=== PATIENT | male | born 1980 | race Caucasian/White ===

== ENCOUNTER 2016-12-13 19:35 | Emergency (ER) | payer BC ==
[2016-12-13 19:51] VITALS: BP 148/99
[2016-12-13] MEDS ORDERED: Ondansetron 4 MG Tab.DIS PO ONE (20:39)
--- NOTE | 2016-12-13 21:55 | EDM.PDOC ---
ED HPI Allergic Reaction - General Chief Complaint: Allergic Reaction Stated Complaint: POSS ALLERGIC REACTION Time Seen by Provider: 12/13/16 20:16 Source of Information: Reports: Patient - History of Present Illness INITIAL COMMENTS - FREE TEXT/NARRATIVE: Patient is a 36 y/o male who presents to the E.D. complaining of adverse side effects/allergic reaction to two new medications that started last Tuesday. Patient states he was started on nexium for acid reflux and zoloft for depression/anxiety. States since starting these two medications depression and acid reflux have decreased but has been nauseated with two episodes of emesis, heart palpitations, and decrease in appetite noted. States he is able to eat with no vomiting. Has intermittent thoughts of current symptoms he is having and becomes mildly anxious. States this has never happened before and relates it to the zoloft. Denies CP, SOB, Abdominal pain, fever/chills, blood stools, dysuria, lightheadedness, syncopal episode, or any additional complaints. Past medical history: Depression, esophageal strictures Current medications: Zoloft, Nexium Surgical history: inguinal hernia PCP: Pablo Timing/Duration: Reports: Constant, Waxing/waning Known identified source: possible/maybe Sick Contact: no Similar symptoms previously: no Suspected Etiology: Reports: medication Recent Medical Care: yes Treatments [employer]ER: Reports: Other (see below) (none stated.) - Related Data Allergies/ADRs: Allergies Allergy/AdvReac Type Severity Reaction Status Date / Time No Known Allergies Allergy Verified 12/13/16 19:46 Home Meds: Home Meds Esomeprazole Magnesium [Nexium] 20 mg PO DAILY 12/13/16 [History] Sertraline HCl [Zoloft] 50 mg PO DAILY 12/13/16 [History] Past Medical History - Past Health History Medical/Surgical History: Denies Medical/Surgical History Gastrointestinal History: Reports: Other (see below) Other Gastrointestinal History: ring in his esophagus for difficulty swallowing Psychiatric History: Reports: Depression Social & Family History - Tobacco Use Smoking Status *Q: Never Smoker - Recreational Drug Use Recreational Drug Use: No ED ROS ALLERGIC REACTION - Review of Systems Review Of Systems: See Below Constitutional: Reports: malaise, decreased appetite. Denies: fever, chills HEENT: Reports: No symptoms Respiratory: Reports: No Symptoms Cardiovascular: Reports: No symptoms GI/Abdominal: Reports: Nausea, Vomiting. Denies: Abdominal pain : Reports: no symptoms Musculoskeletal: Reports: no symptoms Neurological: Reports: No Symptoms Psychiatric: Reports: Anxiety, Depression. Denies: Agitation, Confusion ED EXAM GENERAL NO PERIP PULSE - Physical Exam Exam: See Below Exam Limited By: No limitations General Appearance: alert, WD/WN, no apparent distress Eye Exam: bilateral eye: EOMI, PERRL Ears: hearing grossly normal Nose: normal inspection Throat/Mouth: Normal inspection, Normal oropharynx, Normal voice, No airway compromise Neck: normal inspection, supple Respiratory/Chest: no respiratory distress, lungs clear, normal breath sounds, no accessory muscle use, chest non-tender Cardiovascular: normal peripheral pulses, regular rate, rhythm, no murmur GI/Abdominal: normal bowel sounds, soft, non tender, no organomegaly, no distention Back Exam: normal inspection Neurological: alert, oriented, CN II-XII intact, normal cognition, normal gait, no motor/sensory deficits Psychiatric: normal affect, normal mood Skin Exam: Warm, Dry, Intact, Normal color, No rash Course - Vital Signs Last Recorded V/S: Last Vital Signs Temp 97.2 F 12/13/16 19:47 Pulse 84 12/13/16 19:47 Resp 18 12/13/16 19:47 BP 148/99 H 12/13/16 19:47 Pulse Ox 100 12/13/16 19:47 - Orders/Labs/Meds Meds: Medications Discontinued Medications Generic Name Dose Route Start Last Admin Trade Name José Luis PRN Reason Stop Dose Admin Ondansetron HCl 4 mg 12/13/16 20:39 12/13/16 20:45 Zofran Odt PO 12/13/16 20:40 4 mg ONETIME ONE Administration - Re-Assessments/Exams Free Text/Narrative Re-Assessment/Exam: Zofran ODT 4mg ordered. Suspect the cause of the patient's current symptoms are adverse side effects associated to these medications. Examination did not elicit any findings that would require further testing. Patient concurs. Reassessment, nausea has improved. He is ready to be discharged home. States he feels more anxious while taking these medication. As discussed earlier believe majority of his symptoms are adverse reactions to the zoloft. Will discharge patient home with instructions as documented. Departure - Departure Time of Disposition: 21:52 Disposition: Home, Self-Care 01 Condition: good Clinical Impression: Adverse effect of selective serotonin reuptake inhibitor (SSRI) Referrals: Gina Decker MD [Primary Care Provider] - Forms: ED Department Discharge, Return to Work/School Form Additional Instructions: Suspect many of your symptoms are related to adverse side effects of zoloft. Will have you call your PCP tomorrow morning to discuss further options in treating depression. Suggest holding off in taking the medication tomorrow until speaking with PCP. Can take benadryl 50mg this evening to help with sleeping. Return to the E.D. as needed for any new or worsening symptoms.
== END 2016-12-13 22:09 | disposition home or self-care (01) ==
LOC: JD.ED 19:35
DX: R00.2 Palpitations (principal); R11.2 Nausea with vomiting, unspecified; R63.0 Anorexia; T43.225A Adverse effect of selective serotonin reuptake inhibitors, initial encounter; F32.9 Major depressive disorder, single episode, unspecified
CPT/HCPCS: 99283; A9270

== ENCOUNTER 2017-02-27 15:34 | Inpatient (IN) | payer BC ==
[2017-02-27] MEDS ORDERED: Sodium Chloride 0.9% 1,000 ML IV SCH (19:00)
[2017-02-27] MEDS ORDERED: Iopamidol 755 MG/ML 50 ML Bottle IVPUSH ONE (19:08)
[2017-02-27] MEDS ORDERED: Iopamidol 755 Mg/ML 100 ML Bottle IVPUSH ONE (19:08)
[2017-02-27] MEDS ORDERED: Sodium Chloride 0.9% 10 ML Syringe FLUSH PRN (19:08)
[2017-02-27] MEDS ORDERED: Sodium Chloride 0.9% 100 ML IV SCH (19:15)
--- NOTE | 2017-02-27 19:20 | EDM.PDOC ---
ED HPI GENERAL MEDICAL PROBLEM - General Chief Complaint: Cardiovascular Problem Stated Complaint: RAPID HEART RATE Time Seen by Provider: 02/27/17 16:23 Source of Information: Reports: Patient, RN Notes Reviewed History Limitations: Reports: No Limitations - History of Present Illness INITIAL COMMENTS - FREE TEXT/NARRATIVE: The patient states that he woke up for unknown reasons at 03:30 this morning, then felt dizzy, hot, and tingly. He denies having dyspnea. He noticed that his apple watch indicated that his heart rate was 138 bpm. His symptoms lasted for about 5 or 6 minutes. He went to work, and while he felt exhausted, he was able to finish his shift. He periodically noticed that his heart rate was around 107 bpm during the day. Afterwards, while standing, around 15:00, he again developed the sensation of feeling dizzy, hot and tingly, the same as he had felt this morning. This episode lasted around 5 minutes. He states that he did not check his heart rate at that time. He states that he has had a similar episode of feeling dizzy, hot, and tingly, when having an IV placed, and he nearly fainted. He denies having recent dyspnea, palpitations, chest pain, nausea, vomiting, constipation, diarrhea, or urinary symptoms. He denies recent lower extremity swelling or injury. No recent long trips. History of hypercoagulable disorder. The patient states that he has been drinking > 44 oz of coffee per day over the past week. This is not a usual practice for him. He denies other sources of caffeine, such as soda or energy drinks. The patient's PCP is Dr. Shah. - Related Data Allergies Allergy/AdvReac Type Severity Reaction Status Date / Time No Known Allergies Allergy Verified 12/13/16 19:46 Home Meds: Home Meds Esomeprazole Magnesium [Nexium] 20 mg PO DAILY 12/13/16 [History] FLUoxetine HCl [Prozac] 40 mg PO DAILY 02/27/17 [History] Past Medical History Gastrointestinal History: Reports: GERD, Other (See Below) (Esophageal stricture ) Genitourinary History: Reports: Renal Calculus Psychiatric History: Reports: Anxiety, Depression - Past Surgical History HEENT Surgical History: Reports: Oral Surgery ([place] teeth extraction) GI Surgical History: Reports: EGD (With esophageal dilatation), Hernia, Inguinal (left) Social & Family History - Family History Family Medical History: Noncontributory - Tobacco Use Smoking Status *Q: Never Smoker - Caffeine Use Caffeine Use: Reports: Coffee. Denies: Energy Drinks, Soda - Alcohol Use Alcohol Use History: Yes Alcohol Use Frequency: Socially - Recreational Drug Use Recreational Drug Use: No - Living Situation & Occupation Living situation: Reports: Single, with Significant Other (Fiance), with Family (3 kids) Occupation: Employed ([employer]) ED ROS GENERAL - Review of Systems Review Of Systems: See Below Constitutional: Reports: No Symptoms HEENT: Reports: No Symptoms Respiratory: Reports: No Symptoms Cardiovascular: Reports: No Symptoms Endocrine: Reports: No Symptoms GI/Abdominal: Reports: Constipation (occasional) : Reports: No Symptoms Musculoskeletal: Reports: No Symptoms Skin: Reports: No Symptoms Neurological: Reports: No Symptoms Psychiatric: Reports: No Symptoms Hematologic/Lymphatic: Reports: No Symptoms Immunologic: Reports: No Symptoms ED EXAM, GENERAL - Physical Exam Exam: See Below Exam Limited By: No Limitations General Appearance: Alert, WD/WN, No Apparent Distress Eye Exam: Bilateral Eye: Normal Inspection Ears: Normal External Exam, Hearing Grossly Normal Nose: Normal Inspection, No Blood Throat/Mouth: Normal Inspection, Normal Lips, Normal Voice, No Airway Compromise Head: Atraumatic, Normocephalic Neck: Normal Inspection, Full Range of Motion Respiratory/Chest: No Respiratory Distress, Lungs Clear, Normal Breath Sounds, No Accessory Muscle Use Cardiovascular: Normal Peripheral Pulses, Regular Rate, Rhythm, No Gallop, No JVD, No Murmur, No Rub, Tachycardia Peripheral Pulses: 4+: Radial (L), Radial (R) GI/Abdominal: Normal Bowel Sounds, Soft, Non-Tender, No Organomegaly, No Distention, No Abnormal Bruit, No Mass (Male) Exam: Deferred Rectal (Males) Exam: Deferred Back Exam: Normal Inspection, Full Range of Motion, NT Extremities: Normal Inspection, Normal Range of Motion, No Pedal Edema, Normal Capillary Refill Neurological: Alert, Oriented, Normal Cognition, No Motor/Sensory Deficits Psychiatric: Normal Affect Skin Exam: Warm, Dry, Intact, Normal Color, No Rash Lymphatic: No Adenopathy EKG INTERPRETATION EKG Date: 02/27/17 Time: 15:58 Rhythm: Other (Sinus tachycardia) Rate (Beats/Min): 113 [place]: Normal P-Wave: Present QRS: Normal ST-T: Normal QT: Normal Comparison: NA - No Prior EKG Course - Vital Signs Last Recorded V/S: Last Vital Signs Temp 35.9 C 02/27/17 15:40 Pulse 110 H 02/27/17 15:40 Resp 12 02/27/17 15:40 BP 159/112 H 02/27/17 15:40 Pulse Ox 98 02/27/17 15:40 - Orders/Labs/Meds Orders: Active Orders 24 hr Category Date Time Status EKG 12 Lead [EKG Documentation Completion] [RC] STAT Care 02/27/17 15:48 Active Ang Chest [CT] Stat Exams 02/27/17 18:57 Taken Chest 2V [CR] Stat Exams 02/27/17 17:56 Taken Sodium Chloride 0.9% [Normal Saline] 1,000 ml Med 02/27/17 19:00 Active IV ASDIRECTED Sodium Chloride 0.9% [Normal Saline] 100 ml Med 02/27/17 19:15 Active IV ASDIRECTED Sodium Chloride 0.9% [Saline Flush] Med 02/27/17 19:08 Active 10 ml FLUSH ONETIME PRN Medication Orders Sodium Chloride (Normal Saline) 1,000 mls @ 150 mls/hr IV ASDIRECTED MATA Last Admin: 02/27/17 20:37 Dose: 150 mls/hr Sodium Chloride (Normal Saline) 100 mls @ 65 mls/hr IV ASDIRECTED MATA Last Admin: 02/27/17 19:30 Dose: 65 mls/hr Sodium Chloride (Saline Flush) 10 ml FLUSH ONETIME PRN PRN Reason: IV FLUSH Last Admin: 02/27/17 19:30 Dose: 10 ml Labs: Laboratory Tests 02/27/17 02/27/17 02/27/17 Range/Units 18:13 18:15 18:15 WBC 11.65 H (4.23-9.07) K/mm3 RBC 4.86 (4.63-6.08) M/mm3 Hgb 15.3 (13.7-17.5) gm/L Hct 42.5 (40.1-51.0) % MCV 87.4 (79.0-92.2) fl MCH 31.5 (25.7-32.2) pg MCHC 36.0 H (32.2-35.5) g/dl RDW Std Deviation 38.5 (35.1-43.9) fL Plt Count 326 (163-337) K/mm3 MPV 8.9 L (9.4-12.3) fl Neutrophils % (Manual) 84 H (40-60) % Band Neutrophils % 0 (0-10) % Lymphocytes % (Manual) 13 L (20-40) % Atypical Lymphs % 0 % Monocytes % (Manual) 3 (2-10) % Eosinophils % (Manual) 0 L (0.8-7.0) % Basophils % (Manual) 0 L (0.2-1.2) Platelet Estimate Adequate RBC Morph Comment Normal PT 10.8 (8.0-13.0) SECONDS INR 0.99 APTT 28 (22-36) SECONDS D-Dimer, Quantitative 1.16 H (0.19-0.59) mg/L Puncture Site Rt radial ABG pH 7.48 H (7.35-7.45) ABG pCO2 29.2 L (35.0-45.0) mmHg ABG pO2 82.0 (80.0-100.0) mmHg ABG HCO3 21.3 L (22.0-26.0) meq/L Darryl Test Positive A-a Gradient 16 mmHg O2 Delivery Device Room air FiO2 21.00 (21.00-100.00) % Sodium (136-145) mEq/L Potassium (3.5-5.1) mEq/L Chloride (98-107) mEq/L Carbon Dioxide (21-32) mEq/L Anion Gap (5-15) BUN (7-18) mg/dL Creatinine (0.7-1.3) mg/dL Est Cr Clr Drug Dosing mL/min Estimated GFR (MDRD) (>60) mL/min BUN/Creatinine Ratio (14-18) Glucose (74-106) mg/dL Lactic Acid (0.4-2.0) mmol/L Calcium (8.5-10.1) mg/dL Total Bilirubin (0.2-1.0) mg/dL AST (15-37) U/L ALT (16-63) U/L Alkaline Phosphatase (46-116) U/L Troponin I (0.00-0.056) ng/mL B-Natriuretic Peptide (0-100) pg/mL Total Protein (6.4-8.2) g/dl Albumin (3.4-5.0) g/dl Globulin gm/dL Albumin/Globulin Ratio (1-2) 02/27/17 02/27/17 02/27/17 Range/Units 18:15 18:15 18:15 WBC (4.23-9.07) K/mm3 RBC (4.63-6.08) M/mm3 Hgb (13.7-17.5) gm/L Hct (40.1-51.0) % MCV (79.0-92.2) fl MCH (25.7-32.2) pg MCHC (32.2-35.5) g/dl RDW Std Deviation (35.1-43.9) fL Plt Count (163-337) K/mm3 MPV (9.4-12.3) fl Neutrophils % (Manual) (40-60) % Band Neutrophils % (0-10) % Lymphocytes % (Manual) (20-40) % Atypical Lymphs % % Monocytes % (Manual) (2-10) % Eosinophils % (Manual) (0.8-7.0) % Basophils % (Manual) (0.2-1.2) Platelet Estimate RBC Morph Comment PT (8.0-13.0) SECONDS INR APTT (22-36) SECONDS D-Dimer, Quantitative (0.19-0.59) mg/L Puncture Site ABG pH (7.35-7.45) ABG pCO2 (35.0-45.0) mmHg ABG pO2 (80.0-100.0) mmHg ABG HCO3 (22.0-26.0) meq/L Darryl Test A-a Gradient mmHg O2 Delivery Device FiO2 (21.00-100.00) % Sodium 137 (136-145) mEq/L Potassium 3.4 L (3.5-5.1) mEq/L Chloride 101 (98-107) mEq/L Carbon Dioxide 26 (21-32) mEq/L Anion Gap 13.4 (5-15) BUN 9 (7-18) mg/dL Creatinine 1.0 (0.7-1.3) mg/dL Est Cr Clr Drug Dosing 107.72 mL/min Estimated GFR (MDRD) > 60 (>60) mL/min BUN/Creatinine Ratio 9.0 L (14-18) Glucose 118 H (74-106) mg/dL Lactic Acid 1.0 (0.4-2.0) mmol/L Calcium 9.6 (8.5-10.1) mg/dL Total Bilirubin 0.5 (0.2-1.0) mg/dL AST 20 (15-37) U/L ALT 46 (16-63) U/L Alkaline Phosphatase 84 (46-116) U/L Troponin I < 0.017 (0.00-0.056) ng/mL B-Natriuretic Peptide < 15 (0-100) pg/mL Total Protein 8.4 H (6.4-8.2) g/dl Albumin 4.4 (3.4-5.0) g/dl Globulin 4.0 gm/dL Albumin/Globulin Ratio 1.1 (1-2) Meds: Medications Generic Name Dose Route Start Last Admin Trade Name Freq PRN Reason Stop Dose Admin Sodium Chloride 1,000 mls @ 150 mls/hr 02/27/17 19:00 02/27/17 20:37 Normal Saline IV 150 mls/hr ASDIRECTED MATA Administration Sodium Chloride 100 mls @ 65 mls/hr 02/27/17 19:15 02/27/17 19:30 Normal Saline IV 65 mls/hr ASDIRECTED MATA Administration Sodium Chloride 10 ml 02/27/17 19:08 02/27/17 19:30 Saline Flush FLUSH 10 ml ONETIME PRN Administration IV FLUSH Discontinued Medications Generic Name Dose Route Start Last Admin Trade Name Freq PRN Reason Stop Dose Admin Enoxaparin Sodium 85 mg 02/27/17 20:26 02/27/17 20:38 Lovenox SUBCUT 02/27/17 20:27 85 mg ONETIME STA Administration Iopamidol 100 ml 02/27/17 19:08 02/27/17 19:30 Isovue-370 (76%) IVPUSH 02/27/17 19:09 100 ml ONETIME ONE Administration Iopamidol 50 ml 02/27/17 19:08 02/27/17 19:30 Isovue-370 (76%) IVPUSH 02/27/17 19:09 50 ml ONETIME ONE Administration - Re-Assessments/Exams Free Text/Narrative Re-Assessment/Exam: 02/27/17 18:58 The patient's D-dimer has returned elevated at 1.16. I have ordered a CT angiogram of the chest to evaluate for PE, along with IV fluid. The patient's WBC count is modestly elevated at 11.65, but with 0% bandemia. His CMP is unremarkable. His ABG reflects an [id number] respiratory alkalosis. 02/27/17 19:18 Two-view chest radiograph appears to be grossly normal. Cardiac silhouette is within normal limits. No pulmonary vascular congestion. No pleural effusions. No focal infiltrate. No pneumothorax. Formal read per the Radiologist pending. 02/27/17 20:[address] Arrington, [facility] Radiologist at 20:[address] angiogram is positive for PE in the right lower lobe. I have ordered Lovenox 85 mg SQ. 02/27/17 20:35 Test results discussed with the patient. He is agreeable to being admitted to the hospital. 02/27/17 20:[address] Ellison at 20:35. He accepts the patient for admission to telemetry. Departure - Departure Time of Disposition: 20:40 Disposition: Admitted As Inpatient 65 Condition: Fair Clinical Impression: Pulmonary embolus - My Orders Last 24 Hours: My Active Orders 02/27/17 15:48 EKG 12 Lead [EKG Documentation Completion] [RC] STAT 02/27/17 17:56 Chest 2V [CR] Stat 02/27/17 18:57 Ang Chest [CT] Stat 02/27/17 19:00 Sodium Chloride 0.9% [Normal Saline] 1,000 ml IV ASDIRECTED 02/27/17 19:08 Sodium Chloride 0.9% [Saline Flush] 10 ml FLUSH ONETIME PRN 02/27/17 19:15 Sodium Chloride 0.9% [Normal Saline] 100 ml IV ASDIRECTED - Assessment/Plan Last 24 Hours: My Active Orders 02/27/17 15:48 EKG 12 Lead [EKG Documentation Completion] [RC] STAT 02/27/17 17:56 Chest 2V [CR] Stat 02/27/17 18:57 Ang Chest [CT] Stat 02/27/17 19:00 Sodium Chloride 0.9% [Normal Saline] 1,000 ml IV ASDIRECTED 02/27/17 19:08 Sodium Chloride 0.9% [Saline Flush] 10 ml FLUSH ONETIME PRN 02/27/17 19:15 Sodium Chloride 0.9% [Normal Saline] 100 ml IV ASDIRECTED
[2017-02-27] MEDS ORDERED: Enoxaparin 100 MG/1 ML Syringe SUBCUT STA (20:26)
--- NOTE | 2017-02-27 21:29 | PCM.HP ---
H&P History of Present Illness - General Date of Service: 02/27/17 Admit Problem/Dx: Admission Diagnosis/Problem Admission Diagnosis/Problem Pulmonary embolism Source of Information: Patient, Provider, RN Notes Reviewed, Significant Other History Limitations: Reports: No Limitations - History of Present Illness Initial Comments - Free Text/Narative: This is a 36-year-old white male with past medical history of GERD, history of renal stone, anxiety, depression, history of esophageal stricture status post dilation who presented to the emergency department bleed symptoms of dizziness and feeling hot and tingly. This constellation of symptoms woke him up at about 3:00 this morning. He denies any heart palpitations however he noticed that his heart rate was in the 130s noted on his apple watch. His symptoms lasted about 5-6 minutes. Patient carries no history of abnormal or malignant heart rate in the past. He denies any thyroid problems. Patient had a recurrent episode in the emergency department when having an IV placed in his hand. At that time, it was noted he almost fainted. Patient denies any shortness of breath but has some pain with taking deep breaths. He denies any recent lower extremity edema or injury. Additionally patient admits to drinking coffee daily. He denies any stimulants or any other sources of caffeine or caffeinated products. His initial workup in the emergency department shows a CBC remarkable for WBC of 11.6, and neutrophils of 84%. D-dimer is 1.16. His chemistry is remarkable for potassium of 3.4, glucose of 118 and total protein of 8.4. His EKG shows sinus tachycardia with a heart rate of 113. His Chest CTA [facility] report reads pulmonary emboli involving a small branches of the right lower lobe pulmonary artery. Patient is being admitted for medical management of PE, Sinus Tachycardia and Accelerated HTN. - Related Data Allergies/Adverse Reactions: Allergies Allergy/AdvReac Type Severity Reaction Status Date / Time No Known Allergies Allergy Verified 02/27/17 21:26 Home Medications: Home Meds Esomeprazole Magnesium [Nexium] 20 mg PO DAILY 12/13/16 [History] Albuterol Sulfate [Proair Hfa] 2 puff IH TID PRN 02/27/17 [History] Ciprofloxacin [IJD: Ciloxan 0.3% Ophth Soln] 1 drop OP TID PRN 02/27/17 [History ] FLUoxetine HCl [Prozac] 40 mg PO DAILY 02/27/17 [History] Soft Lens Adjunctive Solutions [Opti-Free] 10 ml MC DAILY PRN 02/27/17 [History] Past Medical History - Past Health History Medical/Surgical History: Denies Medical/Surgical History Gastrointestinal History: Reports: GERD, Other (See Below) (Esophageal stricture ) Other Gastrointestinal History: esophageal stricture. Genitourinary History: Reports: Renal Calculus Psychiatric History: Reports: Anxiety, Depression - Past Surgical History HEENT Surgical History: Reports: Oral Surgery ([place] teeth extraction) GI Surgical History: Reports: EGD (With esophageal dilatation), Hernia, Inguinal (left) Social & Family History - Family History Family Medical History: Noncontributory - Tobacco Use Smoking Status *Q: Never Smoker - Caffeine Use Caffeine Use: Reports: Coffee. 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 Denies: Fever, Chills, Malaise, Weakness, Fatigue HEENT: Reports: No Symptoms Pulmonary: Reports: Pleuritic Chest Pain. Denies: Shortness of Breath Cardiovascular: Reports: Lightheadedness, Blood Pressure Problem, Other (Near Syncope). Denies: Chest Pain, Palpitations, Dyspnea on Exertion, Claudication Gastrointestinal: Reports: Constipation. Denies: Abdominal Pain, Decreased Appetite, Difficulty Swallowing, Nausea, Vomiting Genitourinary: Reports: No Symptoms Musculoskeletal: Reports: No Symptoms Skin: Denies: Jaundice, Rash, Erythema Psychiatric: Denies: Confusion, Depression, Anxiety, Hallucinations, Suicidal Ideation Neurological: Reports: Dizziness, Numbness, Tingling Hematologic/Lymphatic: Reports: No Symptoms Immunologic: Reports: No Symptoms Exam - Exam Exam: See Below - Vital Signs Vital Signs: Last Vital Signs Temp 35.9 C 02/27/17 15:40 Pulse 110 H 02/27/17 15:40 Resp 12 02/27/17 15:40 BP 159/112 H 02/27/17 15:40 Pulse Ox 98 02/27/17 15:40 Weight: 83.007 kg - Exam Quality Assessment: No: Supplemental Oxygen General: Alert, Oriented, Cooperative. No: Mild Distress HEENT: Conjunctiva Clear, EACs Clear, EOMI, Hearing Intact, Mucosa Moist & [place] , Nares Patent, Normal Nasal Septum, Posterior Pharynx Clear, Pupils Equal, Pupils Reactive Neck: Supple, Trachea Midline, Full Range of Motion. No: +2 Carotid Pulse wo Bruit Lungs: Clear to Auscultation, Normal Respiratory Effort Cardiovascular: Regular Rate, Tachycardia Abdomen: Normal Bowel Sounds, Soft. No: Organomegaly, Tenderness (Male) Exam: Deferred, Other (No inguinal tenderness) Rectal (Males) Exam: Deferred Back Exam: Normal Inspection, Full Range of Motion Extremities: Normal Inspection, Normal Pulses, Other (Negative Eden's sign). No: Clubbing, Cyanosis, Calf Tenderness, Edema, Increased Warmth Peripheral Pulses: 3+: Posterior Tibial (L), Posterior Tibial (R), Dorsalis Pedis (L), Dorsalis Pedis (R) Skin: Warm, Dry, Intact Neuro Extensive - Mental Status: Oriented x3, Normal Cognition, Memory Intact Neuro Extensive - Motor, Sensory, Reflexes: CN II-XII Intact, Normal Gait Psychiatric: Alert, Normal Affect, Normal Mood - Patient Data Result Diagrams: 02/27/17 18:15 02/27/17 18:15 EKG INTERPRETATION EKG Date: 02/27/17 Time: 15:58 Rhythm: Other (Sinus Tachycardia) Rate (Beats/Min): 113 [place]: Normal P-Wave: Present QRS: Normal ST-T: Normal QT: Normal Comparison: NA - No Prior EKG *Q Meaningful Use (ADM) - VTE *Q VTE Criteria *Q: - Stroke *Q Stroke Criteria *Q: - AMI *Q AMI Criteria *Q: Problem List Initiated/Reviewed/Updated: Yes Orders Last 24hrs: Medication Orders Sodium Chloride (Normal Saline) 1,000 mls @ 150 mls/hr IV ASDIRECTED [facility]ATA Last Admin: 02/27/17 20:37 Dose: 150 mls/hr Sodium Chloride (Normal Saline) 100 mls @ 65 mls/hr IV ASDIRECTED [facility] Last Admin: 02/27/17 19:30 Dose: 65 mls/hr Sodium Chloride (Saline Flush) 10 ml FLUSH ONETIME PRN PRN Reason: IV FLUSH Last Admin: 02/27/17 19:30 Dose: 10 ml Assessment/Plan Comment:: Assessment/Plan: Pulmonary Embolism - Unprovoked - Risk factor: Couch Potato Lifestyle, Family Hx: Mom had a DVT at the age of 67 (She is now ) and Dad also had a blood clot, he was Morbidly Obese - No recent surgery, prolonged travel, no active malignancy - He is a non smoker, no previous hx/o blood clot, no family hx/o abnormal clotting, no clotting disorder - He is not overweight - CTA shows Pulmonary emboli involving small (subsegmental) branches of the right lower lobe pulmonary artery - Received lovenox SubQ DVT/PE dose in ED - Defer hypercoagulable work up after completion of treatment - Offered warfarin vs NOACs: after discussing risks and benefits- she elected NOACs - Will start xarelto PE treatment protocol to complete for 6 months Pleuritic Pain - 2/2 PE - He is moderately unstable: Hypertensive and Sinus Tachycardia - Pain management - IS Q2 as directed Sinus Tachycardia - HR as high at 113 - 2/2 PE - Thyroid Panel in am - PRN rate control med Accelerated HTN - Presenting BP 159/112 mmHg - Has mild hypokalemia - He carries a hx/o HTN but stop taking his medications - Follow up BPs: 146/107 and 137/111 mmHg - DDx: Conn Syndrome or Primary Hyperaldosteronism - If K remains low, will do work for for above - Clonidine 0.1 mg po and Lasix 10 mg IVP x1 now - PRN Hydralazine Mild Hypokalemia - K 3.4 - Pharmacy to replete and monitor Plan: Admit to Med-Surg Floor w/ Tele Routine AM Labs UDS Resume Home Meds Bilateral LE U/S r/o DVT RT consult SW/CM for d/c planning
[2017-02-27] MEDS ORDERED: Acetaminophen 325 MG Tab PO PRN (22:06)
[2017-02-27] MEDS ORDERED: Metoprolol Tartrate 5 MG/5 ML SDV IVPUSH PRN (22:06)
[2017-02-27] MEDS ORDERED: Morphine 2 MG/ML Syringe IVPUSH PRN (22:06)
[2017-02-27] MEDS ORDERED: hydrALAZINE 20 MG/ML SDV IVPUSH PRN (22:06)
[2017-02-27] MEDS ORDERED: Acetaminophen/HYDROcodone 325-5 MG Tab PO PRN (22:06)
[2017-02-27] MEDS ORDERED: Polyethylene Glycol 3350 Powder 17 GM Packet PO PRN (22:07)
[2017-02-27] MEDS ORDERED: Albuterol/Ipratropium 3.0-0.5 MG/3 ML Neb Soln NEB PRN (22:07)
[2017-02-27] MEDS ORDERED: Promethazine 12.5 MG in Sodium Chloride 0.9% 50 ML IV PRN (22:07)
[2017-02-27] MEDS ORDERED: Bisacodyl 5 MG Tab PO PRN (22:07)
[2017-02-27] MEDS ORDERED: LORazepam 2 MG/ML MDV IV PRN (22:07)
[2017-02-27] MEDS ORDERED: Temazepam 15 MG Cap PO PRN (22:07)
[2017-02-27] MEDS ORDERED: Ondansetron 4 MG/2 ML SDV IV PRN (22:07)
[2017-02-27] MEDS ORDERED: Albuterol 6.7 GM Inhaler INH PRN (22:12)
[2017-02-27] MEDS ORDERED: CIPROFLOXACIN OP PRN (22:12)
[2017-02-27] MEDS ORDERED: [UNRECOGNIZED DRUG - REMARK] MC PRN (22:12)
[2017-02-27] MEDS ORDERED: cloNIDine 0.1 MG Tab PO ONE (22:17)
[2017-02-27] MEDS ORDERED: Furosemide 20 MG/2 ML VIAL IVPUSH ONE (22:17)
[2017-02-27] MEDS ORDERED: Potassium Chloride 20 MEQ Tab.ER PO SCH (23:00)
[2017-02-28] MEDS ORDERED: Potassium Chloride 10 MEQ in Premix Bag 1 BAG IV SCH (00:30)
[2017-02-28] MEDS: Potassium Chloride 20 MEQ Tab.ER PO SCH ×2 (06:19→06:20)
[2017-02-28] MEDS ORDERED: Pantoprazole 40 MG Tab.CR PO SCH (07:00)
[2017-02-28] MEDS ORDERED: oxyCODONE ER 10 MG TAB.ER PO SCH (09:00)
[2017-02-28] MEDS ORDERED: Rivaroxaban 10 MG Tab PO SCH (09:00)
[2017-02-28] MEDS ORDERED: Non-Formulary Medication 1 Each (Esomeprazole Magnesium [Nexium] 20 MG) PO SCH (09:00)
[2017-02-28] MEDS ORDERED: FLUoxetine 20 MG Cap PO SCH (09:00)
--- NOTE | 2017-02-28 09:51 | CR ---
Chest: Two views of the chest were obtained. Comparison: Previous chest x-ray of 09/17/16. Heart size and mediastinum are within normal limits. Lungs are clear. Bony structures appear within normal limits for the patient's age. Impression: 1. Nothing acute is identified on two view chest x-ray. Diagnostic code #1
--- NOTE | 2017-02-28 09:51 | CT ---
CT chest Technique: Multiple axial sections were obtained from above the lung apices inferiorly through the lung bases. Intravenous contrast was utilized. Study has been performed as a pulmonary angiogram protocol. Comparison: Recent chest x-ray performed on the same day (6:19 PM). Findings: Several small subsegmental pulmonary emboli seen within the right lower pulmonary artery. No other pulmonary emboli are seen. Mediastinum and hilar regions show no adenopathy or mass. No pericardial thickening is seen. Small portion of the visualized upper abdominal structures are within normal limits. No pleural effusions are seen. Minimal dependent atelectasis is incidentally noted within the left lung base. Nodular type density seen within the lingula most likely due to nodular atelectasis. Impression: 1. Several small subsegmental pulmonary emboli within the right lower pulmonary artery. 2. Nodular density within the lingula most likely representing nodular area of atelectasis. Diagnostic code #5 I agree with preliminary report issued by [facility] ([facility] report finalized on 02/27/17, 9:23 PM Central Time)
--- NOTE | 2017-02-28 10:53 | US ---
Bilateral lower extremity deep venous ultrasound: Duplex and color flow imaging was obtained of the right and left common femoral, proximal greater saphenous, superficial femoral, popliteal, posterior tibial and peroneal veins. Findings: Augmentation and phasic flow not well seen within both posterior tibial and peroneal veins. Normal compression is seen of both these veins. Other veins show normal phasic flow, augmentation and compression. Impression: 1. No findings of deep venous thrombosis seen within either the right or left lower extremity. I agree with preliminary report issued by [facility] ([facility] report finalized on 02/28/17, 1:49 AM Central Time)
--- NOTE | 2017-02-28 11:31 | PCM.DCSUM1 ---
Discharge Summary - Hospital Course Brief History: This is a 36-year-old white male with past medical history of GERD, history of renal stone, anxiety, depression, history of esophageal stricture status post dilation who presented to the emergency department with symptoms of dizziness and feeling hot and tingly; was found to have pulmonary emboli. - Discharge Data Discharge Date: 02/28/17 Discharge Disposition: Home, Self-Care 01 Condition: Good - Discharge Diagnosis/Problem(s) (1) Pulmonary embolus SNOMED Code(s): 32929554, 98849866 ICD Code: I26.99 - OTHER PULMONARY EMBOLISM WITHOUT ACUTE COR PULMONALE Status: Acute Qualifiers: Pulmonary embolism type: other Chronicity: chronic Acute cor pulmonale presence: without acute cor pulmonale Qualified Code(s): I27.82 - Chronic pulmonary embolism (2) Accelerated hypertension SNOMED Code(s): 85514662 ICD Code: I10 - ESSENTIAL (PRIMARY) HYPERTENSION Status: Resolved (3) Sinus tachycardia SNOMED Code(s): 62570292 ICD Code: R00.0 - TACHYCARDIA, UNSPECIFIED Status: Resolved (4) Hypokalemia SNOMED Code(s): 22173980 ICD Code: E87.6 - HYPOKALEMIA Status: Resolved - Patient Summary/Data Operative Procedure(s) Performed: None Complications: None Consults: Consultations 02/27/17 22:07 Consult to Case Management [CONS] Routine Consult to Art Installer [CONS] Routine Respiratory Care Assess and Treatment [CONS] Routine Recommended Follow-up Testing/Procedures: None Hospital Course: Patient was primarily admitted for medical management of pulmonary emboli which we felt was unprovoked in nature. No obvious risk factors identified as possible etiology of his blood clot except for being a couch potato. His DVT work up was negative. Patient was provided information regarding traditional treatment for blood clot (warfarin) vs new oral anti-coagulations (NOACs). After we carefully discussed risks and benefits with him, he elected to go with NOACs with preference to xarelto. His hospital course was uncomplicated. The rest of his chronic medical illness remained stable during his admission. Patient will complete a six-month treatment for his pulmonary emboli. Any additional treatment beyond the recommended duration will be based on his hypercoagulable workup. Patient is now ready for discharge. He was advised to call his primary care for any questions or concerns related to his health. He was further advised to follow-up with her in 1-2 weeks. His PCP, Dr. Shah, was called and updated regarding discharge care plans. - Patient Instructions Diet: Usual Diet as Tolerated Activity: As Tolerated Driving: May Drive Today Showering/Bathing: May Shower Notify Provider of: Fever, Nausea and/or Vomiting Other/Special Instructions: - Please take all medications as directed. - Recommened you check your blood pressure at least 3x/day and 3-4x/week. Show log on your follow up appointment with your family doctor. - Call your doctor for any abnormal blood pressure readings. - Call your doctor for any questions or concern right after discharge - Discharge Plan Prescriptions/Med Rec: Rivaroxaban [Xarelto] 15 mg PO Q12H #41 tablet Home Medications: Home Meds Esomeprazole Magnesium [Nexium] 20 mg PO DAILY 12/13/16 [History] Albuterol Sulfate [Proair Hfa] 2 puff IH TID PRN 02/27/17 [History] Ciprofloxacin [IJD: Ciloxan 0.3% Ophth Soln] 1 drop OP TID PRN 02/27/17 [History ] FLUoxetine HCl [Prozac] 40 mg PO DAILY 02/27/17 [History] Soft Lens Adjunctive Solutions [Opti-Free] 10 ml MC DAILY PRN 02/27/17 [History] Rivaroxaban [Xarelto] 15 mg PO Q12H #41 tablet 02/28/17 [Rx] LORazepam [Ativan] 1 mg PO TID PRN #6 tablet 03/01/17 [Rx] Patient Handouts: Rivaroxaban oral tablets, Pulmonary Embolism Referrals: Gina Decker MD [Primary Care Provider] - 03/10/17 1:15 pm ( Discuss options for blood-thinning medications (discuss cost after insurance coverage once free 30-day supply is done)) - Discharge Summary/Plan Comment DC Time >30 min.: Yes (45 mins) Discharge Summary/Plan Comment: Discharge to Home - General Info Date of Service: 02/28/17 Admission Dx/Problem (Free Text: Admission Diagnosis/Problem Admission Diagnosis/Problem Pulmonary embolism Subjective Update: Follow Up Functional Status: Reports: Pain Controlled, Tolerating Diet, Ambulating, Urinating. Denies: New Symptoms - Review of Systems General: Denies: Fever, Weakness, Fatigue, Malaise, Chills HEENT: Reports: No Symptoms Pulmonary: Denies: Shortness of Breath, Pleuritic Chest Pain, Cough Cardiovascular: Denies: Chest Pain, Palpitations, Dyspnea on Exertion, Lightheadedness Gastrointestinal: Denies: Abdominal Pain, Nausea, Vomiting Genitourinary: Reports: No Symptoms Musculoskeletal: Reports: No Symptoms Skin: Denies: Cyanosis Neurological: Denies: Dizziness, Difficulty Walking, Weakness, Gait Disturbance Psychiatric: Denies: Depression, Mood Lability, Anxiety, Agitation, Hallucinations Systems Review Comment: No overnight or acute issues. He is ready for discharge. - Patient Data Vitals - Most Recent: Last Vital Signs Temp 37.1 C 02/28/17 08:01 Pulse 81 02/28/17 08:01 Resp 16 02/28/17 08:01 BP 129/90 02/28/17 08:01 Pulse Ox 97 02/28/17 08:01 Weight - Most Recent: 81.465 kg I&O - Last 24 hours: Intake & Output 02/27/17 02/28/17 02/28/17 22:59 06:59 14:59 Intake Total 851 Output Total 1000 Balance -149 Lab Results - Last 24 hrs: Laboratory Results - last 24 hr 02/28/17 02/28/17 02/28/17 Range/Units 00:00 05:05 05:05 WBC 9.95 H (4.23-9.07) K/mm3 RBC 4.95 (4.63-6.08) M/mm3 Hgb 15.6 (13.7-17.5) gm/L Hct 44.0 (40.1-51.0) % MCV 88.9 (79.0-92.2) fl MCH 31.5 (25.7-32.2) pg MCHC 35.5 (32.2-35.5) g/dl RDW Std Deviation 39.2 (35.1-43.9) fL Plt Count 336 (163-337) K/mm3 MPV 9.2 L (9.4-12.3) fl Neut % (Auto) 67.1 (34.0-67.9) % Lymph % (Auto) 21.4 L (21.8-53.1) % [place] % (Auto) 11.0 (5.3-12.2) % Eos % (Auto) 0.2 L (0.8-7.0) Baso % (Auto) 0.2 (0.1-1.2) % Neut # (Auto) 6.68 H (1.78-5.38) K/mm3 Lymph # (Auto) 2.13 (1.32-3.57) K/mm3 [place] # (Auto) 1.09 H (0.30-0.82) K/mm3 Eos # (Auto) 0.02 L (0.04-0.54) K/mm3 Baso # (Auto) 0.02 (0.01-0.08) K/mm3 Sodium 138 (136-145) mEq/L Potassium 4.0 (3.5-5.1) mEq/L Chloride 101 (98-107) mEq/L Carbon Dioxide 27 (21-32) mEq/L Anion Gap 14.0 (5-15) BUN 8 (7-18) mg/dL Creatinine 0.9 (0.7-1.3) mg/dL Est Cr Clr Drug Dosing 119.69 mL/min Estimated GFR (MDRD) > 60 (>60) mL/min BUN/Creatinine Ratio 8.9 L (14-18) Glucose 94 (74-106) mg/dL Calcium 9.6 (8.5-10.1) mg/dL Magnesium 2.1 (1.8-2.4) mg/dl Free T4 1.14 (0.76-1.46) ng/dL TSH 3rd Generation 1.933 (0.358-3.74) uIU/mL Urine Opiates Screen Negative (NEGATIVE) Ur Buprenorphine Scrn Negative (NEGATIVE) Ur Oxycodone Screen Negative (NEGATIVE) Urine Methadone Screen Negative (NEGATIVE) Ur Propoxyphene Screen Negative (NEGATIVE) Ur Barbiturates Screen Negative (NEGATIVE) Ur Tricyclics Screen Negative (NEGATIVE) Ur Phencyclidine Scrn Negative (NEGATIVE) Ur Amphetamine Screen Negative (NEGATIVE) U Methamphetamines Scrn Negative (NEGATIVE) U Benzodiazepines Scrn Negative (NEGATIVE) U Cocaine Metab Screen Negative (NEGATIVE) U Marijuana (THC) Screen Negative (NEGATIVE) Med Orders - Current: Current Medications Acetaminophen (Tylenol) 650 mg PO Q4H PRN PRN Reason: Pain (Mild 1-3)/fever Hydrocodone Bitart/Acetaminophen ([place] 325-5 Mg) 1 tab PO Q4H PRN PRN Reason: Pain (moderate 4-6) Albuterol (Proventil Hfa) 0 gm INH TID PRN PRN Reason: Shortness of Breath Albuterol/Ipratropium (Duoneb 3.0-0.5 Mg/3 Ml) 3 ml NEB Q4H PRN PRN Reason: Shortness Of Breath/wheezing Bisacodyl (Dulcolax) 5 mg PO DAILY PRN PRN Reason: Constipation Fluoxetine HCl (Prozac) 40 mg PO DAILY [facility] Last Admin: 02/28/17 09:22 Dose: 40 mg Hydralazine HCl (Apresoline) 20 mg IVPUSH Q4H PRN PRN Reason: Hypertension Promethazine HCl 12.5 mg/ (Sodium Chloride) 50.5 mls @ 100 mls/hr IV Q6H PRN PRN Reason: Nausea/Vomiting Lorazepam (Ativan) 1 mg IV Q6H PRN PRN Reason: Anxiety Magnesium Sulfate (Pharmacy To Dose - Magnesium Replacement) 1 dose .XX ASDIRECTED [facility] Metoprolol Tartrate (Lopressor) 5 mg IVPUSH Q4H PRN PRN Reason: Tachycardia Morphine Sulfate (Morphine) 1 mg IVPUSH Q4H PRN PRN Reason: Pain (severe 7-10) Stop: 03/01/17 22:07 Ondansetron HCl (Zofran) 4 mg IV Q6H PRN PRN Reason: Nausea/Vomiting Last Admin: 02/28/17 00:05 Dose: 4 mg Oxycodone HCl (Oxycontin) 10 mg PO Q12HR [facility] Last Admin: 02/28/17 09:21 Dose: Not Given Pantoprazole Sodium (Protonix) 40 mg PO DAILY@0700 [facility] Last Admin: 02/28/17 06:19 Dose: 40 mg Polyethylene Glycol (Miralax) 17 gm PO DAILY PRN PRN Reason: Constipation Potassium Chloride (Pharmacy To Dose - Potassium Replacement) 1 dose .XX ASDIRECTED [facility] Rivaroxaban (Xarelto) 15 mg PO Q12H [facility] Stop: 03/20/17 21:01 Last Admin: 02/28/17 09:23 Dose: 15 mg Rivaroxaban (Xarelto) 20 mg PO WITHBREAKFAST [facility] Stop: 09/21/17 07:01 Senna/Docusate Sodium (Senna Plus) 1 tab PO BID PRN PRN Reason: Constipation Sodium Chloride (Saline Flush) 10 ml FLUSH ONETIME PRN PRN Reason: IV FLUSH Last Admin: 02/27/17 19:30 Dose: 10 ml Temazepam (Restoril) 15 mg PO BEDTIME PRN PRN Reason: Sleep Discontinued Medications Clonidine HCl (Catapres) 0.1 mg PO ONETIME ONE Stop: 02/27/17 22:18 Last Admin: 02/27/17 22:38 Dose: 0.1 mg Enoxaparin Sodium (Lovenox) 85 mg SUBCUT ONETIME STA Stop: 02/27/17 20:27 Last Admin: 02/27/17 20:38 Dose: 85 mg Furosemide (Lasix) 10 mg IVPUSH NOW ONE Stop: 02/27/17 22:18 Last Admin: 02/27/17 22:39 Dose: 10 mg Sodium Chloride (Normal Saline) 1,000 mls @ 150 mls/hr IV ASDIRECTED [facility] Last Admin: 02/27/17 20:37 Dose: 150 mls/hr Sodium Chloride (Normal Saline) 100 mls @ 65 mls/hr IV ASDIRECTED [facility] Last Admin: 02/27/17 19:30 Dose: 65 mls/hr Potassium Chloride 10 meq/ (Premix) 100 mls @ 100 mls/hr IV Q1H [facility] Stop: 02/28/17 04:29 Last Admin: 02/28/17 00:16 Dose: 100 mls/hr Iopamidol (Isovue-370 (76%)) 100 ml IVPUSH ONETIME ONE Stop: 02/27/17 19:09 Last Admin: 02/27/17 19:30 Dose: 100 ml Iopamidol (Isovue-370 (76%)) 50 ml IVPUSH ONETIME ONE Stop: 02/27/17 19:09 Last Admin: 02/27/17 19:30 Dose: 50 ml Non-Formulary Medication (Ciprofloxacin) 1 drop OP TID PRN PRN Reason: eye infection Non-Formulary Medication (Soft Lens Adjunctive Solutions [Opti-Free]) 10 ml MC DAILY PRN PRN Reason: Dry Eyes Potassium Chloride (Klor-Con M20) 20 meq PO Q5H [facility] Stop: 02/28/17 06:01 Last Admin: 02/28/17 06:20 Dose: 20 meq - Exam Quality Assessment: Denies: supplemental oxygen General: Reports: alert, oriented, cooperative, no acute distress HEENT: Reports: Pupils equal, Pupils reactive, EOMI, Mucous membr. moist/pink Neck: Reports: supple, trachea midline, no JVD, no thyromegaly Lungs: Reports: Clear to Auscultation, Normal Respiratory Effort Cardiovascular: Reports: Regular Rate, Regular Rhythm GI/Abdominal Exam: Normal Bowel Sounds, Soft, Non-Tender, No Organomegaly, No Distention, No Abnormal Bruit, No Mass, Pelvis Stable (Male) Exam: Deferred Back Exam: Reports: Normal Inspection, Full Range of Motion Extremities: Normal Inspection, Normal Range of Motion, Non-Tender, No Pedal Edema, Normal Capillary Refill Skin: Reports: warm, dry, intact Neurological: Reports: no new focal deficit Psy/Mental Status: Reports: alert, normal affect, normal mood *Q Meaningful Use (DIS) - VTE *Q VTE Criteria *Q: - Stroke *Q Stroke Criteria *Q: - AMI *Q AMI Criteria *Q:
[2017-02-28 11:49] VITALS: BP 117/93
[2017-03-21] MEDS ORDERED: Rivaroxaban 10 MG Tab PO SCH (07:00)
== END 2017-02-28 13:22 | disposition home or self-care (01) | DRG 134 ==
LOC: JD.ED 15:34 → JD.MS 21:01
PROVIDERS: ADMIT Internal Medicine; ATTEND Internal Medicine
DX: I26.99 Other pulmonary embolism without acute cor pulmonale (principal); R00.0 Tachycardia, unspecified; I10 Essential (primary) hypertension; E87.6 Hypokalemia; K21.9 Gastro-esophageal reflux disease without esophagitis; F32.9 Major depressive disorder, single episode, unspecified; F41.9 Anxiety disorder, unspecified; Z79.899 Other long term (current) drug therapy
CPT/HCPCS: 36415; 36600; 71020; 71020-26; 71275; 71275-26; 80048; 80053; 80306; 82803; 83605; 83735; 83880; 84439; 84443; 84484; 85025; 85379; 85610; 85730; 93005; 93970; 93970-26; 96372; 99285; 99285-25; A9270-GY; J1650; J2405; J3480; J7030; J7040; J7050; Q9967

== ENCOUNTER 2017-03-01 17:05 | Emergency (ER) | payer BC ==
[2017-03-01] MEDS ORDERED: LORazepam 1 MG Tab PO ONE (18:46)
--- NOTE | 2017-03-01 18:46 | EDM.PDOC ---
ED HPI GENERAL MEDICAL PROBLEM - General Chief Complaint: Cardiovascular Problem Stated Complaint: SYMPTOMS FROM EARLIER VISIT OR POSSIBLE PANIC DOM Time Seen by Provider: 03/01/17 18:13 Source of Information: Reports: Patient History Limitations: Reports: No Limitations - History of Present Illness INITIAL COMMENTS - FREE TEXT/NARRATIVE: Patient is a 36-year-old male who presents to the ED complaining of recent history of increased breathing rate, numbness and tingling to his fingers, feeling hot, and mildly dizzy. This started at approx. 1430 today while sitting on the couch. Symptoms lasted approximate 20 minutes after controlling his breathing. He did notice his breathing rate was increased during these times. Symptoms completely resolved prior to arrival. He presents to the ED with concerns this may be related to his PE. Patient was recently diagnosed with small PE to the right lower lobe. He was admitted to the hospital on Tuesday and started on xarelto. He was discharged yesterday. He has been taking all his medications as prescribed. He also has a history of anxiety and depression and is on Prozac. Again he has no symptoms with admission to the ED. Vital signs are stable heart rate is regular, SPO2 status is normal. Denies any chest pain, shortness of breath, nausea/vomiting, abdominal pain, presyncopal episode, lower extremity swelling/pain, or any additional complaints. He questions this maybe related to his anxiety but just wants to make sure. Onset: Today Onset Date: 03/01/17 Onset Time: 14:30 Duration: Resolved Prior to Arrival Severity: Mild Improves with: Reports: Rest - Related Data Allergies Allergy/AdvReac Type Severity Reaction Status Date / Time No Known Allergies Allergy Verified 03/01/17 17:22 Home Meds: Home Meds Esomeprazole Magnesium [Nexium] 20 mg PO DAILY 12/13/16 [History] Albuterol Sulfate [Proair Hfa] 2 puff IH TID PRN 02/27/17 [History] Ciprofloxacin [IJD: Ciloxan 0.3% Ophth Soln] 1 drop OP TID PRN 02/27/17 [History ] FLUoxetine HCl [Prozac] 40 mg PO DAILY 02/27/17 [History] Soft Lens Adjunctive Solutions [Opti-Free] 10 ml MC DAILY PRN 02/27/17 [History] Rivaroxaban [Xarelto] 15 mg PO Q12H #41 tablet 02/28/17 [Rx] LORazepam [Ativan] 1 mg PO TID PRN #6 tablet 03/01/17 [Rx] Past Medical History - Past Health History Medical/Surgical History: Denies Medical/Surgical History Cardiovascular History: Reports: Hypertension Other Cardiovascular History: was on medication but changed diet and hasn't needed medication in a few years. Gastrointestinal History: Reports: GERD, Other (See Below) Other Gastrointestinal History: esophageal stricture. Genitourinary History: Reports: Renal Calculus Psychiatric History: Reports: Anxiety, Depression Other Dermatologic History: Keloids to chest and shoulder - Past Surgical History HEENT Surgical History: Reports: Oral Surgery GI Surgical History: Reports: EGD, Hernia, Inguinal Social & Family History - Family History Family Medical History: Noncontributory - Tobacco Use Smoking Status *Q: Never Smoker Second Hand Smoke Exposure: Yes - Caffeine Use Caffeine Use: Reports: Coffee Other Caffeine Use: daily - Recreational Drug Use Recreational Drug Use: No - Living Situation & Occupation Living situation: Reports: Single, with Significant Other (Fiance), with Family (3 kids) Occupation: Employed ([email or web address]) ED ROS GENERAL - Review of Systems Review Of Systems: ROS reveals no pertinent complaints other than HPI. ED EXAM, GENERAL - Physical Exam Exam: See Below Exam Limited By: No Limitations General Appearance: Alert, WD/WN, No Apparent Distress Ears: Hearing Grossly Normal Nose: Normal Inspection Throat/Mouth: Normal Voice, No Airway Compromise Neck: Normal Inspection, Supple Respiratory/Chest: No Respiratory Distress, Lungs Clear, Normal Breath Sounds, No Accessory Muscle Use Cardiovascular: Normal Peripheral Pulses, Regular Rate, Rhythm, No Murmur Peripheral Pulses: 2+: Radial (L), Radial (R) GI/Abdominal: Normal Bowel Sounds, Soft, Non-Tender, No Organomegaly, No Distention Back Exam: Normal Inspection Extremities: Normal Inspection, Normal Range of Motion, Non-Tender, No Pedal Edema, Normal Capillary Refill Neurological: Alert, Oriented, CN II-XII Intact, Normal Cognition, No Motor/ Sensory Deficits Psychiatric: Normal Affect, Normal Mood Skin Exam: Warm, Dry, Intact, Normal Color Course - Vital Signs Last Recorded V/S: Last Vital Signs Temp 99.3 F 03/01/17 19:22 Pulse 75 03/01/17 19:22 Resp 19 03/01/17 19:22 BP 124/91 H 03/01/17 19:22 Pulse Ox 95 03/01/17 19:22 - Orders/Labs/Meds Meds: Medications Discontinued Medications Generic Name Dose Route Start Last Admin Trade Name José Luis PRN Reason Stop Dose Admin Lorazepam 1 mg 03/01/17 18:46 03/01/17 19:00 Ativan PO 03/01/17 18:47 1 mg ONETIME ONE Administration - Re-Assessments/Exams Free Text/Narrative Re-Assessment/Exam: Symptoms resolved prior to admission to the ED. This was after controlling his breathing for 20 minutes. He does have a history of anxiety and depression and is currently on Prozac. Although he has a history of small PE to the right lower lobe. He is on xarelto. Low probability of propagation of PE contributing to symptoms since resolved quickly. No further testing required at this time. Discussed with Dr. Ruano to which he agrees. Will discharge patient home with a prescription for Ativan, short course. So when or if he has these symptoms again he can take. Will have him follow-up with his PCP for further evaluation and treatment of his anxiety-like symptoms. Patient agrees with this and has not further questions/concerns. Departure - Departure Time of Disposition: 18:52 Disposition: Home, Self-Care 01 Condition: Good Clinical Impression: Anxiety and depression, Right pulmonary embolus Prescriptions: LORazepam [Ativan] 1 mg PO TID PRN #6 tablet PRN Reason: Anxiety Instructions: Panic Attacks, [id number], Pulmonary Embolism Referrals: PCP,None [Primary Care Provider] - Gina Decker MD [Physician] - Forms: ED Department Discharge Additional Instructions: Continue taking all your home medications as prescribed. Follow-up with PCP the end of this week or the first part of next week for reevaluation. I have provided a short course of ativan to be taken as needed if he developed similar symptoms. No driving this evening since receiving this in the ED. No driving while taking the Ativan. This medication will cause some sedation. Long-term use is not recommended. Return to ED for any new or worsening symptoms as discussed.
[2017-03-01 19:27] VITALS: BP 124/91
== END 2017-03-01 19:27 | disposition home or self-care (01) ==
LOC: JD.ED 17:05
DX: F41.9 Anxiety disorder, unspecified (principal); F32.9 Major depressive disorder, single episode, unspecified; I26.99 Other pulmonary embolism without acute cor pulmonale; I10 Essential (primary) hypertension; K21.9 Gastro-esophageal reflux disease without esophagitis; Z79.01 Long term (current) use of anticoagulants; Z79.899 Other long term (current) drug therapy
CPT/HCPCS: 99284; A9270; 99283

== ENCOUNTER 2017-05-07 15:31 | Emergency (ER) | payer BC ==
[2017-05-07 15:39] VITALS: BP 146/106
--- NOTE | 2017-05-07 17:18 | EDM.PDOC ---
ED HPI GENERAL MEDICAL PROBLEM - General Chief Complaint: Chest Pain Stated Complaint: CHEST PRESSURE Time Seen by Provider: 05/07/17 15:37 Source of Information: Reports: Patient History Limitations: Reports: No Limitations - History of Present Illness INITIAL COMMENTS - FREE TEXT/NARRATIVE: The patient is a previously healthy 36-year-old male who comes in with a chief complaint of epigastric pain and chest pain. He states he's had it for about 2 weeks. He didn't recall anything that provoked it. Discomfort is located in the upper abdomen and sometimes radiates up into the chest. It is constant. It waxes and wanes. No clear provoking or relieving factors. Tried taking some Nexium but this didn't really seem to help. Mild nausea, no vomiting. No cough or shortness of breath. No prior history of similar symptoms. Middle Chest Pain Score (Numeric/FACES): 8 - Related Data Allergies Allergy/AdvReac Type Severity Reaction Status Date / Time No Known Allergies Allergy Verified 03/01/17 17:22 Home Meds: Home Meds Esomeprazole Magnesium [Nexium] 20 mg PO DAILY 12/13/16 [History] Rivaroxaban [Xarelto] 20 mg PO DAILY 05/07/17 [History] Past Medical History - Past Health History Medical/Surgical History: Denies Medical/Surgical History Cardiovascular History: Reports: Hypertension Other Cardiovascular History: was on medication but changed diet and hasn't needed medication in a few years. Gastrointestinal History: Reports: GERD, Other (See Below) Other Gastrointestinal History: esophageal stricture. Genitourinary History: Reports: Renal Calculus Psychiatric History: Reports: Anxiety, Depression Hematologic History: Reports: Other (See Below) Other Hematologic History: PE Other Dermatologic History: Keloids to chest and shoulder - Past Surgical History HEENT Surgical History: Reports: Oral Surgery GI Surgical History: Reports: EGD, Hernia, Inguinal Social & Family History - Family History Family Medical History: Noncontributory - Tobacco Use Smoking Status *Q: Never Smoker Second Hand Smoke Exposure: Yes - Caffeine Use Caffeine Use: Reports: Coffee Other Caffeine Use: daily - Recreational Drug Use Recreational Drug Use: No - Living Situation & Occupation Living situation: Reports: Single, with Significant Other (Fiance), with Family (3 kids) Occupation: Employed ([employer]) ED ROS GENERAL - Review of Systems Review Of Systems: See Below Constitutional: Denies: Fever HEENT: Reports: No Symptoms Respiratory: Denies: Shortness of Breath, Cough Cardiovascular: Reports: Chest Pain Endocrine: Reports: No Symptoms GI/Abdominal: Reports: Abdominal Pain : Reports: No Symptoms Musculoskeletal: Reports: No Symptoms Skin: Reports: No Symptoms Neurological: Reports: No Symptoms Psychiatric: Reports: No Symptoms ED EXAM, GENERAL - Physical Exam Exam: See Below Exam Limited By: No Limitations General Appearance: Alert, WD/WN, No Apparent Distress Eye Exam: Bilateral Eye: Normal Inspection Ears: Normal External Exam Nose: Normal Inspection Throat/Mouth: Normal Inspection, Normal Voice, No Airway Compromise Head: Atraumatic, Normocephalic Neck: Normal Inspection, Supple, Non-Tender, Full Range of Motion Respiratory/Chest: No Respiratory Distress, Lungs Clear, Normal Breath Sounds, No Accessory Muscle Use, Chest Non-Tender Cardiovascular: Normal Peripheral Pulses, Regular Rate, Rhythm, No Murmur GI/Abdominal: Normal Bowel Sounds, Soft, No Distention, Other (+epigastric TTP, no regound/guarding). No: Rebound Back Exam: Normal Inspection Extremities: Normal Inspection Neurological: Alert, Oriented, Normal Cognition, No Motor/Sensory Deficits Psychiatric: Normal Affect, Normal Mood Skin Exam: Warm, Dry, Intact, Normal Color, No Rash Course - Vital Signs Last Recorded V/S: Last Vital Signs Temp 36.3 C 05/07/17 15:36 Pulse 73 05/07/17 15:36 Resp 16 05/07/17 15:36 BP 146/106 H 05/07/17 15:36 Pulse Ox 100 05/07/17 15:36 - Orders/Labs/Meds Orders: Active Orders 24 hr Category Date Time Status Chest 1V Frontal [CR] Stat Exams 05/07/17 15:43 Taken Labs: Laboratory Tests 05/07/17 05/07/17 Range/Units 15:53 15:53 WBC 12.35 H (4.23-9.07) K/mm3 RBC 5.27 (4.63-6.08) M/mm3 Hgb 16.8 (13.7-17.5) gm/L Hct 47.3 (40.1-51.0) % MCV 89.8 (79.0-92.2) fl MCH 31.9 (25.7-32.2) pg MCHC 35.5 (32.2-35.5) g/dl RDW Std Deviation 40.6 (35.1-43.9) fL Plt Count 318 (163-337) K/mm3 MPV 9.0 L (9.4-12.3) fl Neut % (Auto) 63.4 (34.0-67.9) % Lymph % (Auto) 23.3 (21.8-53.1) % [place] % (Auto) 12.1 (5.3-12.2) % Eos % (Auto) 0.8 (0.8-7.0) Baso % (Auto) 0.2 (0.1-1.2) % Neut # (Auto) 7.83 H (1.78-5.38) K/mm3 Lymph # (Auto) 2.88 (1.32-3.57) K/mm3 [place] # (Auto) 1.49 H (0.30-0.82) K/mm3 Eos # (Auto) 0.10 (0.04-0.54) K/mm3 Baso # (Auto) 0.03 (0.01-0.08) K/mm3 Sodium 138 (136-145) mEq/L Potassium 3.4 L (3.5-5.1) mEq/L Chloride 100 (98-107) mEq/L Carbon Dioxide 28 (21-32) mEq/L Anion Gap 13.4 (5-15) BUN 18 (7-18) mg/dL Creatinine 0.9 (0.7-1.3) mg/dL Est Cr Clr Drug Dosing 119.69 mL/min Estimated GFR (MDRD) > 60 (>60) mL/min BUN/Creatinine Ratio 20.0 H (14-18) Glucose 103 (74-106) mg/dL Calcium 10.1 (8.5-10.1) mg/dL Total Bilirubin 0.5 (0.2-1.0) mg/dL AST 25 (15-37) U/L ALT 55 (16-63) U/L Alkaline Phosphatase 75 (46-116) U/L Troponin I < 0.017 (0.00-0.056) ng/mL Total Protein 9.1 H (6.4-8.2) g/dl Albumin 4.7 (3.4-5.0) g/dl Globulin 4.4 gm/dL Albumin/Globulin Ratio 1.1 (1-2) Lipase 217 (73-393) U/L - Re-Assessments/Exams Free Text/Narrative Re-Assessment/Exam: 05/07/17 18:41 Labs unremarkable, exam benign, possible gastric ulcer. EKG shows no acute abnormality. Chest x-ray shows no acute abnormality. Pt to f/u with PCP for further workup as needed, discussed return precautions. 05/07/17 19:10 Departure - Departure Time of Disposition: 18:00 Disposition: Home, Self-Care 01 Clinical Impression: Epigastric pain Instructions: Heartburn, [id number] Referrals: Gina Decker MD [Primary Care Provider] - Forms: ED Department Discharge Additional Instructions: 1. Continue to take Nexium to reduce stomach acid 2. Also take Tums or Maalox with meals to further reduce irritation. This may help if your pain is caused by an ulcer. 3. Follow up with your primary care provider this week for further care. 4. Return to the Emergency Department if you have worsening pain, difficulty breathing, or any other concerning symptoms. - My Orders Last 24 Hours: My Active Orders 05/07/17 15:43 Chest 1V Frontal [CR] Stat - Assessment/Plan Last 24 Hours: My Active Orders 05/07/17 15:43 Chest 1V Frontal [CR] Stat
--- NOTE | 2017-05-08 19:58 | CR ---
Chest: Portable view of the chest was obtained. Comparison: Prior chest x-ray of 02/27/[address] of 02/27/17. Heart size and mediastinum are normal. Lungs are clear. Bony structures are grossly intact. Impression: 1. Nothing acute is identified on portable chest x-ray. Diagnostic code #1
== END 2017-05-07 17:45 | disposition home or self-care (01) ==
LOC: JD.ED 15:31
DX: R10.13 Epigastric pain (principal); I10 Essential (primary) hypertension; K21.9 Gastro-esophageal reflux disease without esophagitis; Z79.899 Other long term (current) drug therapy
CPT/HCPCS: 36415; 71010; 71010-26; 80053; 83690; 84484; 85025; 93005; 99284; 99285-25

== ENCOUNTER 2017-05-20 21:21 | Emergency (ER) | payer BC ==
[2017-05-20 21:29] VITALS: BP 146/100
[2017-05-20] MEDS ORDERED: Sodium Chloride 0.9% 10 ML Syringe FLUSH PRN (21:48)
[2017-05-20] MEDS ORDERED: Sodium Chloride 0.9% 1,000 ML IV SCH (22:00)
--- NOTE | 2017-05-20 22:38 | EDM.PDOC ---
ED HPI GENERAL MEDICAL PROBLEM - General Chief Complaint: Flank Pain Stated Complaint: LEFT SIDE FLANK PAIN Time Seen by Provider: 05/20/17 21:49 Source of Information: Reports: Patient History Limitations: Reports: No Limitations - History of Present Illness INITIAL COMMENTS - FREE TEXT/NARRATIVE: Patient is a 36-year-old male who presents to the ED complaining of left-sided flank pain. Patient states it came on abruptly last night. Describes the discomfort as a achy sensation. He was unable to get comfortable last night. Patient did have sexual intercourse with his fiance last night. No pain with ejaculation. Upon awaking this morning states the pain had subsided quite a bit. Throughout the course of the day the pain has grown increasingly worse. Patient states this evening with admission to the ED to 3 out of 10. Just prior to admission it was an 8 out of 10. Has noted some hematuria within his urine prior to admission to the ED. There is no dysuria, increased urgency, decrease amount, or sensation of the pain moving towards his abdomen. Denies any fever/ chills, nausea/vomiting, abdominal pain, or any additional complaints. He does have a history of kidney stones in the past and states symptoms are quite similar to previous episodes. Last episodes approximate 5 years ago. He has not had a CT of his abdomen quite some time. States there is no precipitating factors yesterday or today that may have caused the discomfort. He had no back pain with intercourse. Left Flank Pain Score (Numeric/FACES): 5 - Related Data Allergies Allergy/AdvReac Type Severity Reaction Status Date / Time No Known Allergies Allergy Verified 03/01/17 17:22 Home Meds: Home Meds Esomeprazole Magnesium [Nexium] 20 mg PO DAILY 12/13/16 [History] Rivaroxaban [Xarelto] 20 mg PO DAILY 05/07/17 [History] Past Medical History - Past Health History Medical/Surgical History: Denies Medical/Surgical History Cardiovascular History: Reports: Hypertension Other Cardiovascular History: was on medication but changed diet and hasn't needed medication in a few years. Respiratory History: Reports: PE Gastrointestinal History: Reports: GERD, Other (See Below) Other Gastrointestinal History: esophageal stricture. Genitourinary History: Reports: Renal Calculus Psychiatric History: Reports: Anxiety, Depression Hematologic History: Reports: Anticoagulation Therapy Other Hematologic History: PE Other Dermatologic History: Keloids to chest and shoulder - Past Surgical History HEENT Surgical History: Reports: Oral Surgery GI Surgical History: Reports: EGD, Hernia, Inguinal Social & Family History - Family History Family Medical History: Noncontributory - Tobacco Use Smoking Status *Q: Never Smoker Second Hand Smoke Exposure: No - Caffeine Use Caffeine Use: Reports: None Other Caffeine Use: daily - Recreational Drug Use Recreational Drug Use: No - Living Situation & Occupation Living situation: Reports: Single, with Significant Other (Fiance), with Family (3 kids) Occupation: Employed ([employer]) ED ROS GENERAL - Review of Systems Review Of Systems: ROS reveals no pertinent complaints other than HPI. ED EXAM, RENAL/ - Physical Exam Exam: See Below Exam Limited By: No Limitations General Appearance: Alert, WD/WN, No Apparent Distress Ears: Hearing Grossly Normal Nose: Normal Inspection Throat/Mouth: Normal Voice, No Airway Compromise Neck: Normal Inspection, Supple Respiratory/Chest: No Respiratory Distress, Lungs Clear, Normal Breath Sounds, No Accessory Muscle Use, Chest Non-Tender Cardiovascular: Normal Peripheral Pulses, Regular Rate, Rhythm, No Murmur GI/Abdominal: Normal Bowel Sounds, Soft, Non-Tender, No Organomegaly, No Distention, Other (Left flank pain) (Male) Exam: Deferred (No pain to his testicles) Back Exam: Normal Inspection, Full Range of Motion, CVA Tenderness (L). No: CVA Tenderness (R) Neurological: Alert, Oriented, CN II-XII Intact, Normal Cognition, No Motor/ Sensory Deficits Psychiatric: Normal Affect, Normal Mood Course - Vital Signs Last Recorded V/S: Last Vital Signs Temp 97.8 F 05/20/17 21:27 Pulse 70 05/20/17 21:27 Resp 18 05/20/17 21:27 BP 146/100 H 05/20/17 21:27 Pulse Ox 100 05/20/17 21:27 - Orders/Labs/Meds Orders: Active Orders 24 hr Category Date Time Status Peripheral IV Care [RC] . DIRECTED Care 05/20/17 21:48 Active Abdomen Pelvis wo Cont [CT] Stat Exams 05/20/17 21:58 Taken Sodium Chloride 0.9% [Normal Saline] 1,000 ml Med 05/20/17 22:00 Active IV ASDIRECTED Sodium Chloride 0.9% [Saline Flush] Med 05/20/17 21:48 Active 10 ml FLUSH ASDIRECTED PRN Peripheral IV Insertion Adult [OM.PC] Stat Oth 05/20/17 21:48 Ordered Medication Orders Sodium Chloride (Normal Saline) 1,000 mls @ 150 mls/hr IV ASDIRECTED MATA Last Admin: 05/20/17 22:07 Dose: 150 mls/hr Sodium Chloride (Saline Flush) 10 ml FLUSH ASDIRECTED PRN PRN Reason: Keep Vein Open Last Admin: 05/20/17 22:06 Dose: 10 ml Labs: Laboratory Tests 05/20/17 05/20/17 05/20/17 Range/Units 22:08 22:08 22:25 WBC 8.28 (4.23-9.07) K/mm3 RBC 5.04 (4.63-6.08) M/mm3 Hgb 16.3 (13.7-17.5) gm/L Hct 45.5 (40.1-51.0) % MCV 90.3 (79.0-92.2) fl MCH 32.3 H (25.7-32.2) pg MCHC 35.8 H (32.2-35.5) g/dl RDW Std Deviation 40.1 (35.1-43.9) fL Plt Count 346 H (163-337) K/mm3 MPV 9.2 L (9.4-12.3) fl Neut % (Auto) 50.0 (34.0-67.9) % Lymph % (Auto) 34.9 (21.8-53.1) % [place] % (Auto) 12.2 (5.3-12.2) % Eos % (Auto) 2.3 (0.8-7.0) Baso % (Auto) 0.5 (0.1-1.2) % Neut # (Auto) 4.14 (1.78-5.38) K/mm3 Lymph # (Auto) 2.89 (1.32-3.57) K/mm3 [place] # (Auto) 1.01 H (0.30-0.82) K/mm3 Eos # (Auto) 0.19 (0.04-0.54) K/mm3 Baso # (Auto) 0.04 (0.01-0.08) K/mm3 Sodium 140 (136-145) mEq/L Potassium 3.8 (3.5-5.1) mEq/L Chloride 101 (98-107) mEq/L Carbon Dioxide 25 (21-32) mEq/L Anion Gap 17.8 H (5-15) BUN 13 (7-18) mg/dL Creatinine 0.9 (0.7-1.3) mg/dL Est Cr Clr Drug Dosing TNP Estimated GFR (MDRD) > 60 (>60) mL/min BUN/Creatinine Ratio 14.4 (14-18) Glucose 97 (74-106) mg/dL Calcium 9.9 (8.5-10.1) mg/dL Total Bilirubin 0.4 (0.2-1.0) mg/dL AST 20 (15-37) U/L ALT 36 (16-63) U/L Alkaline Phosphatase 75 (46-116) U/L C-Reactive Protein 0.2 (<1.0) mg/dL Total Protein 9.0 H (6.4-8.2) g/dl Albumin 4.7 (3.4-5.0) g/dl Globulin 4.3 gm/dL Albumin/Globulin Ratio 1.1 (1-2) Urine Color Dark yellow (Yellow) Urine Appearance Cloudy H (Clear) Urine pH 6.0 (5.0-8.0) Ur Specific [place] > or = 1.030 (1.005-1.030) Urine Protein 2+ H (Negative) Urine Glucose (UA) Negative (Negative) Urine Ketones Negative (Negative) Urine Occult Blood 3+ H (Negative) Urine Nitrite Negative (Negative) Urine Bilirubin Negative (Negative) Urine Urobilinogen 1.0 (0.2-1.0) Ur Leukocyte Esterase Negative (Negative) Urine RBC 20-30 H (0-5) /hpf Urine WBC 0-5 (0-5) /hpf Ur Epithelial Cells Not seen (0-5) /hpf Urine Bacteria Few (FEW) /hpf Urine Mucus Not seen (FEW) /hpf Meds: Medications Generic Name Dose Route Start Last Admin Trade Name Freq PRN Reason Stop Dose Admin Sodium Chloride 1,000 mls @ 150 mls/hr 05/20/17 22:00 05/20/17 22:07 Normal Saline IV 150 mls/hr ASDIRECTED MATA Administration Sodium Chloride 10 ml 05/20/17 21:48 05/20/17 22:06 Saline Flush FLUSH 10 ml ASDIRECTED PRN Administration Keep Vein Open - Re-Assessments/Exams Free Text/Narrative Re-Assessment/Exam: IV established with normal saline. Initial labs and studies include CBC, chem 14 , CRP, and UA. CT the abdomen and pelvis with no contrast will be obtained. CT the abdomen and pelvis revealed no acute abnormalities. Findings concerning for kidney stone present. Initially ordered Toradol 30 mg IVP. Review of labs UA with some hematuria. Will hold off on this. Patient is on Xarelto. 05/20/17 22:54 Labs reviewed with no concerning finding. Discussed lab results and Ct with patient. Pain is minimal. Will discharge home with instructions as documented. Departure - Departure Time of Disposition: 22:57 Disposition: Home, Self-Care 01 Condition: Good Clinical Impression: Flank pain, Chronic anticoagulation, Left flank pain Hematuria Qualifiers: Hematuria type: gross Qualified Code(s): R31.0 - Gross hematuria - Discharge Information Referrals: Gina Decker MD [Primary Care Provider] - Forms: ED Department Discharge, ED Return to Work/School Form Additional Instructions: As as CT the abdomen and pelvis did not reveal any findings concerning for kidney stones. Etiology current complaint unknown more likely related to muscle skeletal in nature. Treatment is symptomatically care including: Refrain from any activities that cause worsening pain. Tylenol 650 mg every 4-6 hours as needed for pain. She just refraining from any form of NSAIDs due to hematuria present and on Xarelto. Push the fluids. Follow-up with PCP this coming week for reevaluation to ensure hematuria had resolved. Return to ED if hematuria worsens. Return to the ED if you develop any worsening symptoms as discussed. - My Orders Last 24 Hours: My Active Orders 05/20/17 21:48 Peripheral IV Care [RC] . DIRECTED Sodium Chloride 0.9% [Saline Flush] 10 ml FLUSH ASDIRECTED PRN Peripheral IV Insertion Adult [OM.PC] Stat 05/20/17 21:58 Abdomen Pelvis wo Cont [CT] Stat 05/20/17 22:00 Sodium Chloride 0.9% [Normal Saline] 1,000 ml IV ASDIRECTED - Assessment/Plan Last 24 Hours: My Active Orders 05/20/17 21:48 Peripheral IV Care [RC] . DIRECTED Sodium Chloride 0.9% [Saline Flush] 10 ml FLUSH ASDIRECTED PRN Peripheral IV Insertion Adult [OM.PC] Stat 05/20/17 21:58 Abdomen Pelvis wo Cont [CT] Stat 05/20/17 22:00 Sodium Chloride 0.9% [Normal Saline] 1,000 ml IV ASDIRECTED
--- NOTE | 2017-05-23 10:26 | CT ---
CT abdomen and pelvis Technique: Multiple axial sections were obtained from above the dome of the diaphragm inferiorly through the pubic symphysis. Intravenous and oral contrast was not utilized. Study has been performed as a ureteral stone protocol. Comparison: No previous study. Findings: Kidneys show no abnormal calcifications. Right and left ureters show no dilatation. No abnormal calcifications are seen along the course of the ureters. Visualized lung bases show nothing acute. Noncontrast appearance of the liver and spleen appears within normal limits. Pancreas appears within normal limits. Gallbladder shows no calcified gallstones. Adrenal glands appear within normal limits. Aorta shows no aneurysmal dilatation. No retroperitoneal adenopathy or mesenteric abnormalities are seen. No pelvic mass or adenopathy is seen. Appendix is seen which appears normal. No free fluid or inflammatory changes seen. Small fat-containing left inguinal hernia is present. No bowel dilatation is seen. Bone window settings were reviewed which appear within normal limits for the patient's age. Impression: 1. No renal calculi, ureteral dilatation or ureteral stone is seen. 2. Other normal findings as described above. Nothing acute is appreciated. Diagnostic code #1 Agree with preliminary report issued by [employer] ([facility] preliminary report dictated on 05/20/17, 11:32 PM Central Time)
== END 2017-05-20 23:03 | disposition home or self-care (01) ==
LOC: JD.ED 21:21
DX: R10.9 Unspecified abdominal pain (principal); R31.0 Gross hematuria; I10 Essential (primary) hypertension; K21.9 Gastro-esophageal reflux disease without esophagitis; Z87.442 Personal history of urinary calculi; Z79.899 Other long term (current) drug therapy; Z79.01 Long term (current) use of anticoagulants
CPT/HCPCS: 36415; 74176; 80053; 81001; 85025; 86140; 96360; 99284; J7040; J7050

== ENCOUNTER 2017-09-25 22:49 | Emergency (ER) | payer BC ==
[2017-09-25 23:02] VITALS: BP 146/114
--- NOTE | 2017-09-25 23:47 | EDM.PDOC ---
ED HPI GENERAL MEDICAL PROBLEM - General Chief Complaint: Cardiovascular Problem Stated Complaint: RAPID HEART BEAT Time Seen by Provider: 09/25/17 23:30 Source of Information: Reports: Patient, Family (friend) History Limitations: Reports: No Limitations - History of Present Illness INITIAL COMMENTS - FREE TEXT/NARRATIVE: 37-year-old male presents the ED with a feeling of his heart skipping a few beats and perhaps beating fast in his chest. Pulse oximeter check at home wrist suggested that his heart rate was as high as 107 bpm. Patient is a little bit gun shy as he had a previous pulmonary embolism last year and just got off of a 6 month course of Xarelto August 29. The etiology of his pulmonary embolism has never been identified. A Doppler ultrasound of both lower extremities which proved to be negative. He suddenly had CT of the abdomen and pelvis with proved to be negative. He subsequently was subsequent he had investigations of protein C, protein S cardiolipin antibodies involving lighten factor mentation and all were normal. He states he does not feel dyspneic at this time. In the ER his heart rate is in the 80s and sinus rhythm. O2 sats are 99 -100%. He rarely drinks alcohol but had one drink last night. He's not take any stimulants. Even minimizes his caffeine intake. Onset: Today Onset Date: 09/25/17 Onset Time: 22:00 Duration: Minutes: Location: Reports: Chest ([place] like his heart was beating fast in his chest.) Quality: Reports: Other Severity: Moderate (No chest pain) Improves with: Reports: Rest Worsens with: Reports: None Context: Denies: Activity, Exercise, Lifting, Sick Contact, Trauma, Other Associated Symptoms: Reports: No Other Symptoms. Denies: Confusion, Chest Pain , Cough, cough w sputum, Diaphoresis, Fever/Chills, Headaches, Loss of Appetite , Malaise, Nausea/Vomiting, Rash, Seizure, Shortness of Breath, Syncope, Weakness Treatments CIVIL ENGINEER'S AIDE: Reports: Other (see below) (9.) - Related Data Allergies Allergy/AdvReac Type Severity Reaction Status Date / Time No Known Allergies Allergy Verified 09/25/17 23:03 Home Meds: Home Meds Esomeprazole Magnesium [Nexium] 20 mg PO DAILY 12/13/16 [History] Past Medical History - Past Health History Medical/Surgical History: Denies Medical/Surgical History Cardiovascular History: Reports: Hypertension Other Cardiovascular History: was on medication but changed diet and hasn't needed medication in a few years. Respiratory History: Reports: PE Gastrointestinal History: Reports: GERD, Other (See Below) Other Gastrointestinal History: esophageal stricture. Genitourinary History: Reports: Renal Calculus Psychiatric History: Reports: Anxiety, Depression Hematologic History: Reports: Anticoagulation Therapy Other Hematologic History: PE Other Dermatologic History: Keloids to chest and shoulder - Past Surgical History HEENT Surgical History: Reports: Oral Surgery GI Surgical History: Reports: EGD, Hernia, Inguinal Social & Family History - Family History Family Medical History: Noncontributory - Tobacco Use Smoking Status *Q: Never Smoker Second Hand Smoke Exposure: No - Caffeine Use Caffeine Use: Reports: Soda Other Caffeine Use: daily - Recreational Drug Use Recreational Drug Use: No - Living Situation & Occupation Living situation: Reports: Single, with Significant Other (Fiance), with Family (3 kids) 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 Denies: Claudication, Dyspnea on Exertion, Edema, Lightheadedness, Orthopnea Endocrine: Reports: No Symptoms GI/Abdominal: Reports: No Symptoms : Reports: No Symptoms Musculoskeletal: Reports: No Symptoms Skin: Reports: No Symptoms Neurological: Reports: No Symptoms Psychiatric: Reports: Anxiety Hematologic/Lymphatic: Reports: No Symptoms Immunologic: Reports: No Symptoms ED EXAM, GENERAL - Physical Exam Exam: See Below Exam Limited By: No Limitations General Appearance: Alert, WD/WN, Anxious, Mild Distress Eye Exam: Bilateral Eye: Normal Inspection Head: Atraumatic, Normocephalic Neck: Normal Inspection, Supple, Non-Tender, Full Range of Motion. No: Carotid Bruit, Lymphadenopathy (L), Lymphadenopathy (R) Respiratory/Chest: No Respiratory Distress, Lungs Clear, Normal Breath Sounds, Chest Non-Tender Cardiovascular: Normal Peripheral Pulses, Regular Rate, Rhythm, No Edema, No Gallop, No Murmur, No Rub Peripheral Pulses: 2+: Posterior Tibial (L), Posterior Tibial (R), Dorsalis Pedis (L), Dorsalis Pedis (R) GI/Abdominal: Normal Bowel Sounds, Soft, Non-Tender, No Organomegaly, No Mass, Pelvis Stable, Rebound Back Exam: Normal Inspection, Full Range of Motion. No: CVA Tenderness (L), CVA Tenderness (R) Extremities: Normal Inspection, Normal Range of Motion, Non-Tender, Normal Capillary Refill Neurological: Oriented, CN II-XII Intact, Normal Cognition, Normal Gait, Unresponsive Psychiatric: Normal Affect, Normal Mood Skin Exam: Warm, Dry, Intact, Normal Color, No Rash EKG INTERPRETATION EKG Date: 09/25/17 Time: 23:12 Rhythm: NSR Rate (Beats/Min): 91 [place]: Normal P-Wave: Present (First-degree AV block) QRS: Other (Q waves leads 3 and aVF consider old inferior wall myocardial infarction. Decreased voltage limb leads. Early R-wave transition consider right ventricular hypertrophy/septal hypertrophy pattern. Abnormal ECG) EKG Interpretation Comments: Abnormal ECG Course - Vital Signs Last Recorded V/S: Last Vital Signs Temp 36.2 C 09/25/17 22:56 Pulse 79 09/25/17 22:56 Resp 18 09/25/17 22:56 BP 146/114 H 09/25/17 22:56 Pulse Ox 96 09/25/17 22:56 - Orders/Labs/Meds Orders: Active Orders 24 hr Category Date Time Status EKG Documentation Completion [RC] STAT Care 09/26/17 01:53 Active Chest 1V Frontal [CR] Stat Exams 09/25/17 23:46 Taken Labs: Laboratory Tests 09/25/17 09/25/17 09/25/17 Range/Units 23:58 23:58 23:58 WBC 8.92 (4.23-9.07) K/mm3 RBC 5.04 (4.63-6.08) M/mm3 Hgb 15.4 (13.7-17.5) gm/L Hct 43.7 (40.1-51.0) % MCV 86.7 (79.0-92.2) fl MCH 30.6 (25.7-32.2) pg MCHC 35.2 (32.2-35.5) g/dl RDW Std Deviation 39.1 (35.1-43.9) fL Plt Count 286 (163-337) K/mm3 MPV 9.3 L (9.4-12.3) fl Neutrophils % (Manual) 59 (40-60) % Band Neutrophils % 0 (0-10) % Lymphocytes % (Manual) 28 (20-40) % Atypical Lymphs % 5 % Monocytes % (Manual) 6 (2-10) % Eosinophils % (Manual) 1 (0.8-7.0) % Basophils % (Manual) 1 (0.2-1.2) Platelet Estimate Adequate Plt Morphology Comment Normal RBC Morph Comment Normal D-Dimer, Quantitative 0.30 (0.19-0.59) mg/L Sodium 138 (136-145) mEq/L Potassium 3.8 (3.5-5.1) mEq/L Chloride 103 (98-107) mEq/L Carbon Dioxide 26 (21-32) mEq/L Anion Gap 12.8 (5-15) BUN 13 (7-18) mg/dL Creatinine 0.9 (0.7-1.3) mg/dL Est Cr Clr Drug Dosing 111.29 mL/min Estimated GFR (MDRD) > 60 (>60) mL/min BUN/Creatinine Ratio 14.4 (14-18) Glucose 100 (74-106) mg/dL Calcium 9.8 (8.5-10.1) mg/dL Magnesium 2.2 (1.8-2.4) mg/dl Total Bilirubin 0.4 (0.2-1.0) mg/dL AST 34 (15-37) U/L ALT 69 H (16-63) U/L Alkaline Phosphatase 82 (46-116) U/L CK-MB (CK-2) 0.7 (0-3.6) ng/ml Troponin I < 0.017 (0.00-0.056) ng/mL Total Protein 8.0 (6.4-8.2) g/dl Albumin 4.2 (3.4-5.0) g/dl Globulin 3.8 gm/dL Albumin/Globulin Ratio 1.1 (1-2) TSH 3rd Generation 2.836 (0.358-3.74) uIU/mL - Radiology Interpretation Free Text/Narrative:: 37-year-old male attends the ED with palpitations or at least skipped beats. Also felt that his heart was beating a bit faster than it should at 107/min. This was monitor on pulse oximeter. His O2 sats were 98%. He is shy as he had a previous PE last year and just finished six-month course of Xarelto for pulmonary embolism abundant identified source August 29 this year. Multiple investigations yielded no positive results as to how come he developed a pulmonary medicine. He admits that it made him feel somewhat anxious and short of breath. D he is monitor shows sats of 98% he is in sinus rhythm in the 90s. ECG shows no signs of acute ischemic change. Plan 1 view chest x-ray routine labs to include cardiac markers and d-dimer. - Re-Assessments/Exams Free Text/Narrative Re-Assessment/Exam: 09/26/17 00:37 portable chest x-ray reveals clear lung dominguez cardiac silhouette normal in size. 09/26/17 00:52 White count is 8.92 with a normal differential of 59% neutrophils no bands. Hemoglobin is 15.4 with a hematocrit of 43.7. Blood count is normal at 286,000. D-dimer is normal at 0.30. Chemistry is all normal other than ALT which is slightly elevated at 69. Cardiac markers are normal and TSH was 2.836. Departure - Departure Time of Disposition: 00:52 Disposition: Home, Self-Care 01 Condition: Fair Clinical Impression: Intermittent palpitations Instructions: Palpitations, [id number] Referrals: Gina Decker MD [Primary Care Provider] - Forms: ED Department Discharge Additional Instructions: Evaluation the emergency room tonight due to palpitations and perhaps a mildly elevated heart rate in transiently. Monitoring in the ED for the last hour and a half reveals no arrhythmias with heartbeat in the upper 90s. Blood pressure is also normal. Due to history of pulmonary embolism of unclear etiology lab work was carried out. It is all within normal limits including the D-dimer assay which measures blood clot activity. Your value today was 0.30 well within the normal range and indicates no possibility of pulmonary embolism. The cause of the transient elevated heart rate and palpitations and it is unclear. However out of 100,000 beats per day we typically have 2 or 3000 that may be extra skips and jumps each day and a normal human being. Most the time they go on without us being aware of them. At this time I would suggest discontinuing monitoring to see if similar events occur. If they do Holter monitoring or continuous ECG monitoring may be in order. Of note her thyroid function was normal today as well. - My Orders Last 24 Hours: My Active Orders 09/25/17 23:46 Chest 1V Frontal [CR] Stat 09/26/17 01:53 EKG Documentation Completion [RC] STAT - Assessment/Plan Last 24 Hours: My Active Orders 09/25/17 23:46 Chest 1V Frontal [CR] Stat 09/26/17 01:53 EKG Documentation Completion [RC] STAT
--- NOTE | 2017-09-26 10:06 | CR ---
Chest: Portable view of the chest was obtained. Comparison: Prior chest x-ray of 05/07/17. Heart size and mediastinum are normal. Lungs are clear. Bony structures are grossly intact. Impression: 1. Nothing acute is identified on portable chest x-ray. Diagnostic code #1
== END 2017-09-26 01:10 | disposition home or self-care (01) ==
LOC: JD.ED 22:49
DX: R00.2 Palpitations (principal); I10 Essential (primary) hypertension; K21.9 Gastro-esophageal reflux disease without esophagitis; Z79.899 Other long term (current) drug therapy; Z79.01 Long term (current) use of anticoagulants; Z86.711 Personal history of pulmonary embolism
CPT/HCPCS: 36415; 71045; 71045-26; 80053; 82553; 83735; 84443; 84484; 85025; 85379; 93005; 93010; 99284-25; 99285-25

== ENCOUNTER 2017-10-01 13:43 | Emergency (ER) | payer BC ==
[2017-10-01 13:52] VITALS: BP 149/104
[2017-10-01] MEDS ORDERED: Alum Hydrox/Mag Hydrox/Simeth 30 ML, Lidocaine 2% 15 ML PO ONE ×2 (14:37)
--- NOTE | 2017-10-01 15:35 | EDM.PDOC ---
ED HPI GENERAL MEDICAL PROBLEM - General Chief Complaint: Abdominal Pain Stated Complaint: ABDOMINAL PRESSURE/HX OF PE 7 MONTHS AGO Time Seen by Provider: 10/01/17 14:15 Source of Information: Reports: Patient History Limitations: Reports: No Limitations - History of Present Illness INITIAL COMMENTS - FREE TEXT/NARRATIVE: Patient is a 37-year-old male who presents to the ED complaining of some upper epigastric lower sternal border discomfort. Patient states he's been experiencing pressure to the epigastric region. Past few days worse with bending over. States it increases with abdomen pushing up on his chdest. Has noticed some increased burping and also flatulence. He has a history of acid reflux and takes Prilosec. States discomfort does worsen with eating but notes this is intermittent. Laying down does improve the symptoms along with the burping and passing gas. He has not been consuming any caffeinated beverages, chocolate food snacks, or eating any spicy foods. Currently discomfort rated a 4 out of 10 with its worst being a 9 out of 10. In addition he complains of right sternal bar border discomfort states it's believes to be related to a rib out. He's been adjusted by chiropractor. This is mild in intensity. He is not experiencing shortness of breath, dizziness, nausea/vomiting, diarrhea, blood in stool, dysuria, pain to his back, pain to shoulders, or any additional complaints. He does have a history of PE diagnosed 7 months ago and was on Xarelto. He underwent multiple blood tests to determine why with no conclusive reason. Xarelto was recently discontinued. Upper Abdomen Pain Score (Numeric/FACES): 4 - Related Data Allergies Allergy/AdvReac Type Severity Reaction Status Date / Time No Known Allergies Allergy Verified 09/25/17 23:03 Home Meds: Home Meds Esomeprazole Magnesium [Nexium] 20 mg PO DAILY 12/13/16 [History] Aspirin [Halfprin] 81 mg PO DAILY 10/01/17 [History] Past Medical History - Past Health History Medical/Surgical History: Denies Medical/Surgical History Cardiovascular History: Reports: Hypertension Other Cardiovascular History: was on medication but changed diet and hasn't needed medication in a few years. Respiratory History: Reports: PE Gastrointestinal History: Reports: GERD, Other (See Below) Other Gastrointestinal History: esophageal stricture. Genitourinary History: Reports: Renal Calculus Psychiatric History: Reports: Anxiety, Depression Hematologic History: Reports: Anticoagulation Therapy Other Hematologic History: PE Other Dermatologic History: Keloids to chest and shoulder - Past Surgical History HEENT Surgical History: Reports: Oral Surgery GI Surgical History: Reports: EGD, Hernia, Inguinal Social & Family History - Family History Family Medical History: Noncontributory - Tobacco Use Smoking Status *Q: Never Smoker Second Hand Smoke Exposure: No - Caffeine Use Caffeine Use: Reports: Soda Other Caffeine Use: daily - Recreational Drug Use Recreational Drug Use: No - Living Situation & Occupation Living situation: Reports: Single, with Significant Other (Fiance), with Family (3 kids) 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 Denies: Constipation, Diarrhea, Decreased Appetite, Nausea, Vomiting : Reports: No Symptoms Musculoskeletal: Reports: No Symptoms ED EXAM, GI/ABD - Physical Exam Exam: See Below Exam Limited By: No Limitations General Appearance: Alert, WD/WN, Mild Distress Ears: Hearing Grossly Normal Nose: Normal Inspection Throat/Mouth: Normal Inspection, Normal Oropharynx, Normal Voice, No Airway Compromise Head: Atraumatic, Normocephalic Neck: Normal Inspection, Supple, Non-Tender, Full Range of Motion Respiratory/Chest: No Respiratory Distress, Lungs Clear, Normal Breath Sounds, No Accessory Muscle Use, Chest Non-Tender Cardiovascular: Normal Peripheral Pulses, Regular Rate, Rhythm, No Murmur GI/Abdominal Exam: Normal Bowel Sounds, Soft, Non-Tender, No Organomegaly, No Distention Extremities: Normal Inspection, Normal Range of Motion, Non-Tender, No Pedal Edema, Normal Capillary Refill Neurological: Alert, Oriented, CN II-XII Intact, Normal Cognition, No Motor/ Sensory Deficits Psychiatric: Normal Affect, Normal Mood Skin Exam: Warm, Dry, Intact, Normal Color Course - Vital Signs Last Recorded V/S: Last Vital Signs Temp 97.0 F 10/01/17 13:51 Pulse 95 10/01/17 13:51 Resp 20 10/01/17 13:51 BP 149/104 H 10/01/17 13:51 Pulse Ox 99 10/01/17 13:51 - Orders/Labs/Meds Labs: Laboratory Tests 10/01/17 10/01/17 10/01/17 Range/Units 15:10 15:10 15:10 WBC 8.45 (4.23-9.07) K/mm3 RBC 5.28 (4.63-6.08) M/mm3 Hgb 16.4 (13.7-17.5) gm/L Hct 46.0 (40.1-51.0) % MCV 87.1 (79.0-92.2) fl MCH 31.1 (25.7-32.2) pg MCHC 35.7 H (32.2-35.5) g/dl RDW Std Deviation 39.1 (35.1-43.9) fL Plt Count 286 (163-337) K/mm3 MPV 8.8 L (9.4-12.3) fl Neut % (Auto) 62.8 (34.0-67.9) % Lymph % (Auto) 23.8 (21.8-53.1) % [place] % (Auto) 11.4 (5.3-12.2) % Eos % (Auto) 1.3 (0.8-7.0) Baso % (Auto) 0.6 (0.1-1.2) % Neut # (Auto) 5.31 (1.78-5.38) K/mm3 Lymph # (Auto) 2.01 (1.32-3.57) K/mm3 [place] # (Auto) 0.96 H (0.30-0.82) K/mm3 Eos # (Auto) 0.11 (0.04-0.54) K/mm3 Baso # (Auto) 0.05 (0.01-0.08) K/mm3 D-Dimer, Quantitative 0.34 (0.19-0.59) mg/L Sodium 136 (136-145) mEq/L Potassium 4.5 (3.5-5.1) mEq/L Chloride 101 (98-107) mEq/L Carbon Dioxide 27 (21-32) mEq/L Anion Gap 12.5 (5-15) BUN 17 (7-18) mg/dL Creatinine 1.0 (0.7-1.3) mg/dL Est Cr Clr Drug Dosing 100.16 mL/min Estimated GFR (MDRD) > 60 (>60) mL/min BUN/Creatinine Ratio 17.0 (14-18) Glucose 93 (74-106) mg/dL Calcium 9.5 (8.5-10.1) mg/dL Total Bilirubin 0.4 (0.2-1.0) mg/dL AST 28 (15-37) U/L ALT 56 (16-63) U/L Alkaline Phosphatase 82 (46-116) U/L Troponin I < 0.017 (0.00-0.056) ng/mL C-Reactive Protein < 0.2 (<1.0) mg/dL Total Protein 8.1 (6.4-8.2) g/dl Albumin 4.2 (3.4-5.0) g/dl Globulin 3.9 gm/dL Albumin/Globulin Ratio 1.1 (1-2) Lipase 191 (73-393) U/L TSH 3rd Generation 1.463 (0.358-3.74) uIU/mL Meds: Medications Discontinued Medications Generic Name Dose Route Start Last Admin Trade Name Freq PRN Reason Stop Dose Admin Al Hydroxide/Mg Hydroxide 30 0 ml 10/01/17 14:37 10/01/17 15:18 ml/ Lidocaine HCl 15 ml PO 10/01/17 14:38 45 ml ONETIME ONE Administration - Re-Assessments/Exams Free Text/Narrative Re-Assessment/Exam: Labs and studies to be obtained include a CBC, chem 14, lipase, troponin, TSH, chest x-ray, and EKG. Ordered a GI cocktail by mouth. D-dimer will be obtained. Patient experiencing rights sided sternal border pain along the fourth intercostal space. He states related to ribs being out. States he's had adjustment by chiropractor. He does have a history of PE requiring anticoagulation that was recently discontinued. EKG sinus rhythm at a rate of 90. No acute ST changes noted. Labs reviewed. With no concerning findings. All normal. 10/01/17 16:41 Patient did get relief after drinking the GI cocktail. No pressure currently. We'll discharge patient home with instructions as documented. Departure - Departure Time of Disposition: 16:42 Disposition: Home, Self-Care 01 Condition: Good Clinical Impression: Abdominal pain Qualifiers: Abdominal location: epigastric Qualified Code(s): R10.13 - Epigastric pain - Discharge Information Instructions: Abdominal Pain, Adult, [id number] Referrals: Gina Decker MD [Primary Care Provider] - Forms: ED Department Discharge Additional Instructions: Suspect cause of epigastric discomfort is related to acid reflux. He got relief of the symptoms with a GI cocktail. Will increase the dose of your Nexium to 40 mg a day for the next 2 weeks. Refrain from any spicy foods, caffeinated beverages, chocolates, or other foods/drinks that cause aggravation. No eating or drinking within 4 hours ago prior to going to bed. May use Pepcid or Zantac in addition to the Nexium. Follow-up with PCP for reevaluation. Return to the ED if you develop any new or worsening symptoms.
--- NOTE | 2017-10-01 15:37 | CR ---
Chest: Portable view of the chest was obtained. Comparison: Prior chest x-ray of 09/26/17. Heart size and mediastinum are normal. Lungs are clear. Bony structures are grossly intact. Impression: 1. Nothing acute is seen on portable chest x-ray. Diagnostic code #1
== END 2017-10-01 16:58 | disposition home or self-care (01) ==
LOC: JD.ED 13:43
DX: R10.13 Epigastric pain (principal); I10 Essential (primary) hypertension; Z79.01 Long term (current) use of anticoagulants; Z79.82 Long term (current) use of aspirin; Z79.899 Other long term (current) drug therapy
CPT/HCPCS: 36415; 71045; 80053; 83690; 84443; 84484; 85025; 85379; 86140; 93005; 99284; A9270

== ENCOUNTER 2017-10-20 01:02 | Emergency (ER) | payer BC ==
[2017-10-20 01:23] VITALS: BP 144/97
--- NOTE | 2017-10-20 01:33 | EDM.PDOC ---
ED HPI GENERAL MEDICAL PROBLEM - General Chief Complaint: Cardiovascular Problem Stated Complaint: HEART BEATS HARD/THEN GOES BACK TO NORMAL Time Seen by Provider: 10/20/17 01:22 Source of Information: Reports: Patient History Limitations: Reports: No Limitations - History of Present Illness INITIAL COMMENTS - FREE TEXT/NARRATIVE: The patient presents with palpitations. He says he was watching TV and he noticed his heart beating hard. This happened 3 or 4 times. He is not having it now. He denies fever, chills, cough, chest pain, shortness of breath, abdominal pain, nausea or vomiting. He has a history of PE. He is now off of his blood thinners. A cause was not found for the PE. He does not drink caffeine and he does not smoke. Onset: Sudden Duration: Hour(s): Severity: Moderate Improves with: Reports: None Worsens with: Reports: None Associated Symptoms: Reports: No Other Symptoms - Related Data Allergies Allergy/AdvReac Type Severity Reaction Status Date / Time No Known Allergies Allergy Verified 09/25/17 23:03 Home Meds: Home Meds Esomeprazole Magnesium [Nexium] 20 mg PO DAILY 12/13/16 [History] Aspirin [Halfprin] 81 mg PO DAILY 10/01/17 [History] Sucralfate [Carafate] 10 ml PO QID 10/20/17 [History] Past Medical History - Past Health History Medical/Surgical History: Denies Medical/Surgical History Cardiovascular History: Reports: Hypertension Other Cardiovascular History: was on medication but changed diet and hasn't needed medication in a few years. Respiratory History: Reports: PE Gastrointestinal History: Reports: GERD, Other (See Below) Other Gastrointestinal History: esophageal stricture. Genitourinary History: Reports: Renal Calculus Psychiatric History: Reports: Anxiety, Depression Hematologic History: Reports: Anticoagulation Therapy Other Hematologic History: PE Other Dermatologic History: Keloids to chest and shoulder - Past Surgical History HEENT Surgical History: Reports: Oral Surgery GI Surgical History: Reports: EGD, Hernia, Inguinal Social & Family History - Family History Family Medical History: Noncontributory - Tobacco Use Smoking Status *Q: Never Smoker Second Hand Smoke Exposure: No - Caffeine Use Caffeine Use: Reports: None Other Caffeine Use: daily - Recreational Drug Use Recreational Drug Use: No - Living Situation & Occupation Living situation: Reports: Single, with Significant Other (Fiance), with Family (3 kids) 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 Denies: Chest Pain Endocrine: Reports: No Symptoms GI/Abdominal: Reports: No Symptoms : Reports: No Symptoms ED EXAM, GENERAL - Physical Exam Exam: See Below Exam Limited By: No Limitations General Appearance: Alert, No Apparent Distress Ears: Normal External Exam Nose: Normal Inspection Head: Atraumatic, Normocephalic Neck: Normal Inspection Respiratory/Chest: No Respiratory Distress, Lungs Clear, Normal Breath Sounds Cardiovascular: Regular Rate, Rhythm, No Edema, No Murmur GI/Abdominal: Soft, Non-Tender, No Organomegaly, No Mass Back Exam: Normal Inspection Extremities: Normal Inspection EKG INTERPRETATION EKG Date: 10/20/17 Time: :18 Rhythm: NSR Rate (Beats/Min): 67 [place]: Normal P-Wave: Present QRS: Normal ST-T: Normal QT: Normal Course - Vital Signs Last Recorded V/S: Last Vital Signs Temp 96.6 F 10/20/17 01:22 Pulse 70 10/20/17 01:22 Resp 20 10/20/17 01:22 BP 144/97 H 10/20/17 01:22 Pulse Ox 100 10/20/17 01:22 - Orders/Labs/Meds Orders: Active Orders 24 hr Category Date Time Status Cardiac Monitoring [RC] . DIRECTED Care 10/20/17 01:28 Active EKG Documentation Completion [RC] STAT Care 10/20/17 01:28 Active Labs: Laboratory Tests 10/20/17 10/20/17 10/20/17 Range/Units 01:45 01:45 01:45 WBC 6.19 (4.23-9.07) K/mm3 RBC 4.88 (4.63-6.08) M/mm3 Hgb 15.1 (13.7-17.5) gm/L Hct 42.3 (40.1-51.0) % MCV 86.7 (79.0-92.2) fl MCH 30.9 (25.7-32.2) pg MCHC 35.7 H (32.2-35.5) g/dl RDW Std Deviation 39.0 (35.1-43.9) fL Plt Count 300 (163-337) K/mm3 MPV 9.3 L (9.4-12.3) fl Neut % (Auto) 50.6 (34.0-67.9) % Lymph % (Auto) 33.9 (21.8-53.1) % [place] % (Auto) 13.2 H (5.3-12.2) % Eos % (Auto) 1.8 (0.8-7.0) Baso % (Auto) 0.3 (0.1-1.2) % Neut # (Auto) 3.13 (1.78-5.38) K/mm3 Lymph # (Auto) 2.10 (1.32-3.57) K/mm3 [place] # (Auto) 0.82 (0.30-0.82) K/mm3 Eos # (Auto) 0.11 (0.04-0.54) K/mm3 Baso # (Auto) 0.02 (0.01-0.08) K/mm3 D-Dimer, Quantitative 0.29 (0.19-0.59) mg/L Sodium 139 (136-145) mEq/L Potassium 3.8 (3.5-5.1) mEq/L Chloride 102 (98-107) mEq/L Carbon Dioxide 27 (21-32) mEq/L Anion Gap 13.8 (5-15) BUN 14 (7-18) mg/dL Creatinine 1.1 (0.7-1.3) mg/dL Est Cr Clr Drug Dosing 96.98 mL/min Estimated GFR (MDRD) > 60 (>60) mL/min BUN/Creatinine Ratio 12.7 L (14-18) Glucose 97 (74-106) mg/dL Calcium 9.6 (8.5-10.1) mg/dL Total Bilirubin 0.5 (0.2-1.0) mg/dL AST 17 (15-37) U/L ALT 32 (16-63) U/L Alkaline Phosphatase 73 (46-116) U/L Troponin I < 0.017 (0.00-0.056) ng/mL Total Protein 7.9 (6.4-8.2) g/dl Albumin 4.2 (3.4-5.0) g/dl Globulin 3.7 gm/dL Albumin/Globulin Ratio 1.1 (1-2) - Re-Assessments/Exams Free Text/Narrative Re-Assessment/Exam: 10/20/17 01:33 I ordered a EKG and labs. I will keep him on the monitor. 10/20/17 02:39 His EKG shows a NSR with no acute changes. His CBC and CMP look good. His troponin was negative and also his D-dimer. I will get him on a 48 hour holter monitor and have him follow up with his doctor. Departure - Departure Time of Disposition: 02:40 Disposition: Home, Self-Care 01 Condition: Good Clinical Impression: Palpitations Referrals: Gina Decker MD [Primary Care Provider] - 1 Week Forms: ED Department Discharge Additional Instructions: Wear the holter monitor for 48 hours. Follow up with Dr Shah. Please return if you are worse. - My Orders Last 24 Hours: My Active Orders 10/20/17 01:28 Cardiac Monitoring [RC] . DIRECTED EKG Documentation Completion [RC] STAT - Assessment/Plan Last 24 Hours: My Active Orders 10/20/17 01:28 Cardiac Monitoring [RC] . DIRECTED EKG Documentation Completion [RC] STAT
== END 2017-10-20 03:10 | disposition home or self-care (01) ==
LOC: JD.ED 01:02
DX: R00.2 Palpitations (principal); I10 Essential (primary) hypertension; Z79.82 Long term (current) use of aspirin; Z79.899 Other long term (current) drug therapy
CPT/HCPCS: 36415; 80053; 84484; 85025; 85379; 93005; 93010; 93225; 93226; 99284-25; 99285-25

== ENCOUNTER 2017-11-09 16:33 | Emergency (ER) | payer BC ==
[2017-11-09] MEDS: Dextrose 5%-Lactated Ringers 1,000 ML IV SCH (17:16)
--- NOTE | 2017-11-09 17:18 | EDM.PDOC ---
ED HPI GENERAL MEDICAL PROBLEM - General Chief Complaint: Cardiovascular Problem Stated Complaint: HEART POUNDING/HIGH PULSE Time Seen by Provider: 11/09/17 17:11 Source of Information: Reports: Patient History Limitations: Reports: No Limitations - History of Present Illness INITIAL COMMENTS - FREE TEXT/NARRATIVE: 37-year-old male presents the ED with chief complaint of palpitations. He states that he feels his heart is working hard pounding against his chest primarily when he is up and about but he noticed it as rest as well. This seemed to start over the last couple of days. Of note the patient states he just finished a 14 day course of Biaxin and amoxicillin for Helicobacter pylori infection. States she did have some diarrhea yesterday evening. Otherwise he tolerated the medication overall pretty well. Denies any nausea vomiting. No fever or chills. Any headache. ECG done by triage nurse shows sinus rhythm at 90 /m. There is no signs of ischemia and no arrhythmias. Vision denies any feeling like his heart is beating irregularly. Feels heart is beating hard in his chest. Onset: Sudden (Started yesterday and is been intermittent since that time.) Duration: Hour(s): Location: Reports: Chest (Feels pounding in his chest as if his heart was working too hard.) Quality: Reports: Other Severity: Moderate (Palpitations) Improves with: Reports: None Worsens with: Reports: None Context: Denies: Activity, Exercise, Lifting, Sick Contact, Trauma, Other Associated Symptoms: Reports: Other (Had some diarrhea last evening but none today.). 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 (see below) (Has taken no medications today.) - Related Data Allergies Allergy/AdvReac Type Severity Reaction Status Date / Time No Known Allergies Allergy Verified 11/09/17 16:41 Home Meds: Home Meds Esomeprazole Magnesium [Nexium] 20 mg PO DAILY 12/13/16 [History] Aspirin [Halfprin] 81 mg PO DAILY 10/01/17 [History] Sucralfate [Carafate] 10 ml PO QID 10/20/17 [History] LORazepam [Ativan] 0.5 mg PO Q6H PRN #5 tablet 11/09/17 [Rx] buPROPion HCl [Wellbutrin Xl] 150 mg PO DAILY 11/09/17 [History] Past Medical History - Past Health History Medical/Surgical History: Denies Medical/Surgical History Cardiovascular History: Reports: Hypertension Other Cardiovascular History: was on medication but changed diet and hasn't needed medication in a few years. Respiratory History: Reports: PE Gastrointestinal History: Reports: GERD, Other (See Below) Other Gastrointestinal History: esophageal stricture. Genitourinary History: Reports: Renal Calculus Psychiatric History: Reports: Anxiety, Depression Hematologic History: Reports: Anticoagulation Therapy Other Hematologic History: PE Other Dermatologic History: Keloids to chest and shoulder - Past Surgical History HEENT Surgical History: Reports: Oral Surgery GI Surgical History: Reports: EGD, Hernia, Inguinal Social & Family History - Family History Family Medical History: Noncontributory - Tobacco Use Smoking Status *Q: Never Smoker Second Hand Smoke Exposure: No - Caffeine Use Caffeine Use: Reports: None Other Caffeine Use: daily - Recreational Drug Use Recreational Drug Use: No - Living Situation & Occupation Living situation: Reports: Single, with Significant Other (Fiance), with Family (3 kids) 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 pylori.). Denies: Fever, Chills HEENT: Reports: No Symptoms Respiratory: Reports: No Symptoms Cardiovascular: Reports: Palpitations. Denies: Chest Pain, Blood Pressure Problem, Claudication, Dyspnea on Exertion, Edema, Lightheadedness, Orthopnea, PND, Syncope (Feels his heart beating hard in his chest.), Other Endocrine: Reports: Fatigue GI/Abdominal: Reports: Diarrhea (Mild diarrhea last evening but nothing today.) . Denies: Abdominal Pain : Reports: No Symptoms Musculoskeletal: Reports: No Symptoms Skin: Reports: No Symptoms Neurological: Reports: No Symptoms ED EXAM, GENERAL - Physical Exam Exam: See Below Exam Limited By: No Limitations General Appearance: Alert, WD/WN, Anxious, Mild Distress Eye Exam: Bilateral Eye: Normal Inspection (No jaundice.) Neck: Normal Inspection, Supple, Non-Tender, Full Range of Motion. No: Carotid Bruit, Lymphadenopathy (L), Lymphadenopathy (R) Respiratory/Chest: No Respiratory Distress, Lungs Clear, Normal Breath Sounds, No Accessory Muscle Use, Chest Non-Tender Cardiovascular: Normal Peripheral Pulses, Regular Rate, Rhythm, No Edema, No Gallop, No Murmur, Tachycardia (Heart rate was 74/min. However follow-up on standing it went up to as high as 1 18/m suggesting a component of orthostasis. He went back into the 70s within about 90 seconds.) Peripheral Pulses: 3+: Posterior Tibial (L), Posterior Tibial (R), Dorsalis Pedis (L), Dorsalis Pedis (R) GI/Abdominal: Normal Bowel Sounds, Soft, Non-Tender, No Organomegaly, No Abnormal Bruit, No Mass, Pelvis Stable Back Exam: Normal Inspection, Full Range of Motion. No: CVA Tenderness (L), CVA Tenderness (R) Extremities: Normal Inspection, Normal Range of Motion, Non-Tender, No Pedal Edema Neurological: Alert, Oriented, CN II-XII Intact, Normal Cognition, Normal Gait Psychiatric: Normal Affect, Normal Mood Skin Exam: Warm, Dry, Intact, Normal Color, No Rash EKG INTERPRETATION EKG Date: 11/09/17 Time: 16:45 Rhythm: NSR Rate (Beats/Min): 90 [place]: Normal P-Wave: Present QRS: Other (Mildly decreased voltage in the limb leads.) Course - Vital Signs Last Recorded V/S: Last Vital Signs Temp 36.1 C 11/09/17 16:42 Pulse 81 11/09/17 19:17 Resp 15 11/09/17 16:42 BP 131/95 H 11/09/17 19:17 Pulse Ox 98 11/09/17 16:42 Orthostatic Blood Pressure [ 138/101 Standing] Orthostatic Blood Pressure [ 145/106 Sitting] Orthostatic Blood Pressure [ 147/102 Supine] - Orders/Labs/Meds Orders: Active Orders 24 hr Category Date Time Status Orthostatic Vital Signs [RC] ASDIRECTED Care 11/09/17 17:11 Active Labs: Laboratory Tests 11/09/17 11/09/17 11/09/17 Range/Units 17:05 17:05 17:05 WBC 6.75 (4.23-9.07) K/mm3 RBC 5.12 (4.63-6.08) M/mm3 Hgb 16.0 (13.7-17.5) gm/L Hct 44.9 (40.1-51.0) % MCV 87.7 (79.0-92.2) fl MCH 31.3 (25.7-32.2) pg MCHC 35.6 H (32.2-35.5) g/dl RDW Std Deviation 39.6 (35.1-43.9) fL Plt Count 273 (163-337) K/mm3 MPV 9.3 L (9.4-12.3) fl Neutrophils % (Manual) 50 (40-60) % Band Neutrophils % 0 (0-10) % Lymphocytes % (Manual) 45 H (20-40) % Atypical Lymphs % 0 % Monocytes % (Manual) 3 (2-10) % Eosinophils % (Manual) 1 (0.8-7.0) % Basophils % (Manual) 1 (0.2-1.2) Platelet Estimate Adequate Plt Morphology Comment Normal RBC Morph Comment Normal Sodium 139 (136-145) mEq/L Potassium 3.6 (3.5-5.1) mEq/L Chloride 101 (98-107) mEq/L Carbon Dioxide 28 (21-32) mEq/L Anion Gap 13.6 (5-15) BUN 10 (7-18) mg/dL Creatinine 0.8 (0.7-1.3) mg/dL Est Cr Clr Drug Dosing 133.34 mL/min Estimated GFR (MDRD) > 60 (>60) mL/min BUN/Creatinine Ratio 12.5 L (14-18) Glucose 89 (74-106) mg/dL Calcium 9.7 (8.5-10.1) mg/dL Magnesium 2.1 (1.8-2.4) mg/dl Total Bilirubin 0.6 (0.2-1.0) mg/dL AST 36 (15-37) U/L ALT 92 H (16-63) U/L Alkaline Phosphatase 94 (46-116) U/L C-Reactive Protein 0.4 (<1.0) mg/dL Total Protein 8.3 H (6.4-8.2) g/dl Albumin 4.6 (3.4-5.0) g/dl Globulin 3.7 gm/dL Albumin/Globulin Ratio 1.2 (1-2) TSH 3rd Generation 1.852 (0.358-3.74) uIU/mL Meds: Medications Discontinued Medications Generic Name Dose Route Start Last Admin Trade Name José Luis PRN Reason Stop Dose Admin Dextrose/Lactated Ringer's 1,000 mls @ 999 mls/hr 11/09/17 17:15 11/09/17 17: 16 Dextrose 5%-Lactated Ringers IV 999 mls/hr ASDIRECTED MATA Administration Lorazepam 0.5 mg 11/09/17 18:26 11/09/17 18:37 Ativan IVPUSH 11/09/17 18:27 0.5 ml ONETIME ONE Administration - Radiology Interpretation Free Text/Narrative:: 37-year-old male presents the ED for evaluation of palpitations. From the patient's perspective its his heart beating hard in his chest unclear about how fast. It certainly an uncomfortable feeling which brought him to the ED. He reports he just finished a 14 day course of antibiotics for H. pylori infection and tolerated it overall pretty well. Some metallic taste in his mouth but feels that he ate and drank fairly normally. Had mild amount of diarrhea last evening at the end of the treatment plan. Yesterday he states he started to feel little unwell with weakness and fatigue. Noticed palpitations or heart beating hard in his chest yesterday and this continued throughout today on an intermittent basis. Does not feel short of breath dizzy lightheaded or nauseated . ECG done by triage nurse shows sinus rhythm at 90/m with perhaps decreased voltage in the limb leads but otherwise normal ECG. Labs will be placed on a heart monitor and he remain on this. Orthostatic BPs are normal. The labs will be collected. Plan will be to infuse a liter of D5 Ringer's lactate. Patient does appear a little anxious. Initial BP was 142/116. - Re-Assessments/Exams Free Text/Narrative Re-Assessment/Exam: 11/09/17 18:19 Labs reveal a normal white count at 6.75 with 50% neutrophils and no bands reported. Mild lymphocytosis at 45%. Hemoglobin is 16.0 with hematocrit of 44.9. White count normal 273,000. Chemistry is completely normal including an anion gap of 13.6. BUN is 10 with a creatinine of 0.8. Glucose was 89. Magnesium is normal at 2.1. Calcium normal at 9.7. Bilirubin is 0.6 AST is 36 ALT is 92. At some point in time he needs to be screened for hepatitis C. TSH normal at 1.85. Blood pressure last recording is 140/103. Unclear if this is accurate. Heart rate remains 96/min.. 11/09/17 18:22 Discussed findings with the patient that his labs are completely normal. Blood pressure remains elevated he states when he goes to the clinic it's always normal. In my opinion the patient appears to be very anxious. He states he still "feels off" (not right) but can't put a finger on anything specific that is wrong. He states that his blood pressure is always normal when he attends the clinic. Therefore persistent blood pressure in the diastolic of 100 range suggest that he is feeling anxious. Plan Ativan 0.5 mg IV for anxiety relief. 11/09/17 18:57 are transferred to [facility]. She will monitor him for decrease in blood pressure and an improvement in his anxiety level.Once he is feeling improved he will be discharged to home. Written for Ativan 0.5 mg tablets 5 tablets to be used one every 6 hours when necessary for similar anxiety symptoms if needed. Departure - Departure Time of Disposition: 19:15 Disposition: Home, Self-Care 01 Condition: Fair Clinical Impression: Intermittent palpitations, Anxiety about health Prescriptions: LORazepam [Ativan] 0.5 mg PO Q6H PRN #5 tablet PRN Reason: anxiety relief Instructions: Panic Attacks, [id number], Palpitations Referrals: Gina Decker MD [Primary Care Provider] - Forms: ED Department Discharge Additional Instructions: Evaluation the emergency room today in regards to presentation with feeling of heart working hard in her chest or palpitations. No skips or abnormal rhythms did well in the ED on continuous heart monitoring for over an hour and a half. Lab work also proved to be completely normal. It may be that you're still suffering some side effects from the clarithromycin which was part of your 14 day treatment program for H. pylori infection. It may take another 3 or 4 days before the clarithromycin antibiotic is out of your system completely. Her blood pressure remained elevated and you appear to be quite uptight/anxious . You were therefore treated with Ativan 0.5 mg IV to help resolve some anxiety and bring your blood pressure down. I would suggested adopt a wait and see approach ands see how you feel over the next 2-3 days . If anxiety symptoms seem to persist then may try Ativan 0.5 mg every 6 hours as needed for relief of anxiety or heart palpitations. If symptoms continue then follow-up with her personal care physician in the clinic. I suspect things will resolve on their own. - My Orders Last 24 Hours: My Active Orders 11/09/17 17:11 Orthostatic Vital Signs [RC] ASDIRECTED - Assessment/Plan Last 24 Hours: My Active Orders 11/09/17 17:11 Orthostatic Vital Signs [RC] ASDIRECTED
[2017-11-09] MEDS: LORazepam 2 MG/ML SDV IVPUSH ONE (18:37)
[2017-11-09 19:17] VITALS: BP 131/95
== END 2017-11-09 19:18 | disposition home or self-care (01) ==
LOC: JD.ED 16:33
DX: R00.2 Palpitations (principal); F41.8 Other specified anxiety disorders; I10 Essential (primary) hypertension; K21.9 Gastro-esophageal reflux disease without esophagitis; Z79.82 Long term (current) use of aspirin; Z79.899 Other long term (current) drug therapy; Z87.442 Personal history of urinary calculi
CPT/HCPCS: 36415; 80053; 83735; 84443; 85025; 86140; 96361; 96374; 99285; J2060; J7042; 99284

== ENCOUNTER 2018-01-15 12:56 | Emergency (ER) | payer BC ==
[2018-01-15 13:03] VITALS: BP 145/102
--- NOTE | 2018-01-15 13:10 | EDM.PDOC ---
ED HPI GENERAL MEDICAL PROBLEM - General Chief Complaint: Cardiovascular Problem Stated Complaint: HEART PALPATATIONS AND SOB Time Seen by Provider: 01/15/18 13:09 Source of Information: Reports: Patient History Limitations: Reports: No Limitations - History of Present Illness INITIAL COMMENTS - FREE TEXT/NARRATIVE: Patient is a 37-year-old male who presents to the ED complaining of palpitations , shortness of breath, tingling to his fingers, one hour ago while at work. Patient was cooking when this occurred. He's been more stressed out recently. States with onset of symptoms he took lorazepam 0.5 mg by mouth with resolution of most of symptoms with admission to the ED. He is currently wearing an event monitor. He's been evaluated by cardiology in [place]. Cardiac event monitor has been in place for 25 days. It comes off early part of January. Echocardiogram will be obtained that day as well. It is unclear cause of symptoms. The same symptoms he is currently experiencing having going on for quite some time. He was evaluated last year with a diagnosis of PE February 2017 for unknown cause. He was on a anticoagulant that has been discontinued. He states current symptoms are no way similar to that episode. Currently denies any chest pain, shortness of breath, recent activity or trauma that precipitated this, lightheadedness, dizziness, nausea/vomiting, abd pain, pain to lower extremities, swelling to lower extremities, or any any additional complaints. Patient denies any excessive caffeine use. Denies drinking any energy drinks. Alcohol and recreational drug use none. Patient does not smoke. Patient has been more stressed out lately since multiple coworkers have not been showing up at work or have quit. In addition his 4-year-old son was found to be outside eating dirt and dog feces and asked a stranger walking by if he had anything to eat since he was hungry. Child protective services are involved and investigating. - Related Data Allergies Allergy/AdvReac Type Severity Reaction Status Date / Time No Known Allergies Allergy Verified 11/09/17 16:41 Home Meds: Home Meds Esomeprazole Magnesium [Nexium] 20 mg PO DAILY 12/13/16 [History] Aspirin [Halfprin] 81 mg PO DAILY 10/01/17 [History] LORazepam [Ativan] 0.5 mg PO Q6H PRN #5 tablet 11/09/17 [Rx] buPROPion HCl [Wellbutrin Xl] 150 mg PO DAILY 11/09/17 [History] Past Medical History - Past Health History Medical/Surgical History: Denies Medical/Surgical History Cardiovascular History: Reports: Arrhythmia, Hypertension Other Cardiovascular History: was on medication but changed diet and hasn't needed medication in a few years. Respiratory History: Reports: PE Gastrointestinal History: Reports: GERD, Other (See Below) Other Gastrointestinal History: esophageal stricture. Genitourinary History: Reports: Renal Calculus Psychiatric History: Reports: Anxiety, Depression Hematologic History: Reports: Anticoagulation Therapy Other Hematologic History: PE Other Dermatologic History: Keloids to chest and shoulder - Past Surgical History HEENT Surgical History: Reports: Oral Surgery GI Surgical History: Reports: EGD, Hernia, Inguinal Social & Family History - Family History Family Medical History: Noncontributory - Tobacco Use Smoking Status *Q: Never Smoker - Caffeine Use Caffeine Use: Reports: None Other Caffeine Use: daily - Recreational Drug Use Recreational Drug Use: No - Living Situation & Occupation Living situation: Reports: Single, with Significant Other (Fiance), with Family (3 kids) Occupation: Employed ([employer]) ED ROS GENERAL - Review of Systems Review Of Systems: See Below Psychiatric: Reports: Anxiety, Depression. Denies: Homicidal Ideation, Suicidal Ideation ED EXAM, GENERAL - Physical Exam Exam: See Below Exam Limited By: No Limitations General Appearance: Alert, WD/WN, No Apparent Distress Eye Exam: Bilateral Eye: PERRL Ears: Hearing Grossly Normal Nose: Normal Inspection Throat/Mouth: Normal Voice, No Airway Compromise Neck: Normal Inspection, Supple Respiratory/Chest: No Respiratory Distress, Lungs Clear, Normal Breath Sounds, No Accessory Muscle Use, Chest Non-Tender Cardiovascular: Normal Peripheral Pulses, Regular Rate, Rhythm, No Murmur Peripheral Pulses: 4+: Radial (R) GI/Abdominal: Normal Bowel Sounds, Soft, Non-Tender, No Organomegaly Back Exam: Normal Inspection Extremities: Normal Inspection, Normal Range of Motion, Non-Tender, No Pedal Edema, Normal Capillary Refill Neurological: Alert, Oriented, CN II-XII Intact, Normal Cognition, No Motor/ Sensory Deficits Psychiatric: Normal Affect, Normal Mood Skin Exam: Warm, Dry, Intact, Normal Color, No Rash Course - Vital Signs Last Recorded V/S: Last Vital Signs Temp 97.8 F 01/15/18 13:00 Pulse 89 01/15/18 13:00 Resp 16 01/15/18 13:00 BP 145/102 H 01/15/18 13:00 Pulse Ox 100 01/15/18 13:00 - Orders/Labs/Meds Labs: Laboratory Tests 01/15/18 01/15/18 Range/Units 13:35 13:36 Sodium 137 (136-145) mEq/L Potassium 4.3 (3.5-5.1) mEq/L Chloride 102 (98-107) mEq/L Carbon Dioxide 28 (21-32) mEq/L Anion Gap 11.3 (5-15) BUN 13 (7-18) mg/dL Creatinine 0.9 (0.7-1.3) mg/dL Est Cr Clr Drug Dosing 118.53 mL/min Estimated GFR (MDRD) > 60 (>60) mL/min BUN/Creatinine Ratio 14.4 (14-18) Glucose 99 (74-106) mg/dL Calcium 9.7 (8.5-10.1) mg/dL Urine Opiates Screen Negative (NEGATIVE) Ur Buprenorphine Scrn Negative (NEGATIVE) Ur Oxycodone Screen Negative (NEGATIVE) Urine Methadone Screen Negative (NEGATIVE) Ur Propoxyphene Screen Negative (NEGATIVE) Ur Barbiturates Screen Negative (NEGATIVE) Ur Tricyclics Screen Negative (NEGATIVE) Ur Phencyclidine Scrn Negative (NEGATIVE) Ur Amphetamine Screen Negative (NEGATIVE) U Methamphetamines Scrn Negative (NEGATIVE) U Benzodiazepines Scrn Negative (NEGATIVE) U Cocaine Metab Screen Negative (NEGATIVE) U Marijuana (THC) Screen Negative (NEGATIVE) - Re-Assessments/Exams Free Text/Narrative Re-Assessment/Exam: Vital signs are stable. SPO2 100% on room air. Heart rate 89. Patient has no chest pain or shortness of breath. States he has a sensation his heart beating is unusual. He did take lorazepam 0.5 mg after onset of symptoms with relief upon examination in the ED. Patient been more stressed out lately. Has not been eating or drinking normally. Will go ahead and obtain basic metabolic panel, urine drug tox,and cxr 1 view. Patient has no additional symptmos. Event monitor is in place. Respiratory therapy contacted to see recent episode but unable. BMP, CXR, and Urine drug ordered. EKG sinus rhythm at a rate of 88. No acute ST changes noted. Labs reviewed:. BMP essentially normal. Urine drug tox negative. Chest x-ray no acute findings. Final interpretation is pending. Reviewed with Dr. Ruano. Reassessment, patient resting comfortably in bed. VSS. He has no further complaints. Suspect cause of episode was a panic attack. Symptoms relieved with lorazepam. Patient has event monitor in place. Sees a cardiologists this coming January with echocardiogram. Discharge instructions as documented. The patient remained hemodynamically stable while under my care in the E.D. I discussed the concerning symptoms for which to return to the E.D. with the patient. The patient verbalized understanding. All questions were answered. Departure - Departure Time of Disposition: 14:41 Disposition: Home, Self-Care 01 Condition: Good Clinical Impression: Panic attack due to exceptional stress, Anxiety about health, Palpitations Instructions: Panic Attack, Palpitations, Cardiac Event Monitoring Referrals: Gina Decker MD [Primary Care Provider] - Forms: ED Department Discharge, ED Return to Work/School Form Additional Instructions: As discussed believe your recent event was due to a panic attack. Symptoms resolved after receiving the lorazepam. He has been under a lot more stress recently that may be contributing to these episodes. Continue taking all your medications as prescribed. Keep appointment for echocardiogram as scheduled. Make an appointment with receiver stocker to receive results of the event monitor. No driving today since taking lorazepam. Follow-up with your primary care provider as needed this week for further evaluation. Return to the ED if you develop any new or worsening symptoms.
--- NOTE | 2018-01-16 08:23 | CR ---
Chest: Portable view of the chest was obtained. Comparison: Prior chest x-ray of 10/01/17. Heart size and mediastinum are normal. Lungs are clear with no acute parenchymal change. Bony structures are grossly intact. Impression: 1. Nothing acute is appreciated on portable chest x-ray. Diagnostic code #1
== END 2018-01-15 14:50 | disposition home or self-care (01) ==
LOC: JD.ED 12:56
DX: F43.0 Acute stress reaction (principal); F41.9 Anxiety disorder, unspecified; R00.2 Palpitations; I10 Essential (primary) hypertension; K21.9 Gastro-esophageal reflux disease without esophagitis; F32.9 Major depressive disorder, single episode, unspecified; Z79.82 Long term (current) use of aspirin; Z79.899 Other long term (current) drug therapy
CPT/HCPCS: 36415; 71045; 71045-26; 80048; 80306; 99283; 99285

== ENCOUNTER 2018-03-28 11:56 | Emergency (ER) | payer BC ==
[2018-03-28 12:07] VITALS: BP 150/104
[2018-03-28] MEDS ORDERED: Alum Hydrox/Mag Hydrox/Simeth 30 ML, Lidocaine 2% 15 ML PO ONE ×2 (12:31)
[2018-03-28] MEDS ORDERED: Sodium Chloride 0.9% 10 ML Syringe FLUSH PRN (12:31)
--- NOTE | 2018-03-28 13:00 | EDM.PDOC ---
ED HPI GENERAL MEDICAL PROBLEM - General Chief Complaint: Abdominal Pain Stated Complaint: STOMACH PAIN Time Seen by Provider: 03/28/18 12:25 Source of Information: Reports: Patient History Limitations: Reports: No Limitations - History of Present Illness INITIAL COMMENTS - FREE TEXT/NARRATIVE: 37-year-old male presents for evaluation and treatment of epigastric pain. Patient reports he would develop epigastric pain about 30 to 45 minutes prior to arrival in the ED. States he attempted to eat some lunch, a slice of pizza, but this seemed to worsen his epigastric pain. He states that he did feel nauseated earlier but this is now improved. No vomiting. Currently rates the discomfort as a 3 or 4 out of 10. He states while he was eating and belching he did express some chest pain but none currently. No shortness of breath. He reports he has been having looser bowel movements. No back pain. Patient reports he's had similar episode to this in the past. He has had an upper endoscopy several years ago. States that he had a stricture in one area that required intervention. He is scheduled to have an EGD again in April. patient reports about one year ago he had a pulmonary embolus. He was on xarelto for about 6 months. He had lab work to discover the etiology for his PE but no coagulation disorders were found. Patient reports he does have a history of anxiety. He normally has been taking Ativan twice a day and he did not take any Ativan today. Onset: Today Duration: Minutes: (45) Upper Abdomen Pain Score (Numeric/FACES): 7 - Related Data Allergies Allergy/AdvReac Type Severity Reaction Status Date / Time No Known Allergies Allergy Verified 03/28/18 12:08 Home Meds: Home Meds Aspirin [Halfprin] 81 mg PO DAILY 10/01/17 [History] LORazepam [Ativan] 0.5 mg PO Q6H PRN #5 tablet 11/09/17 [Rx] GI Cocktail 45 ml PO DAILY PRN #1 bottle 03/28/18 [Rx] Omeprazole Magnesium [Prilosec Otc] 40 mg PO DAILY 03/28/18 [History] Past Medical History - Past Health History Medical/Surgical History: Denies Medical/Surgical History Cardiovascular History: Reports: Arrhythmia, Hypertension Other Cardiovascular History: was on medication but changed diet and hasn't needed medication in a few years. Respiratory History: Reports: PE Gastrointestinal History: Reports: GERD, Other (See Below) Other Gastrointestinal History: esophageal stricture. Genitourinary History: Reports: Renal Calculus Psychiatric History: Reports: Anxiety, Depression Hematologic History: Reports: Anticoagulation Therapy Other Hematologic History: PE Other Dermatologic History: Keloids to chest and shoulder - Past Surgical History HEENT Surgical History: Reports: Oral Surgery GI Surgical History: Reports: EGD, Hernia, Inguinal Social & Family History - Family History Family Medical History: Noncontributory - Tobacco Use Smoking Status *Q: Never Smoker - Caffeine Use Caffeine Use: Reports: None Other Caffeine Use: daily - Recreational Drug Use Recreational Drug Use: No - Living Situation & Occupation Living situation: Reports: Single, with Significant Other (Fiance), with Family (3 kids) Occupation: Employed ([employer]) ED ROS GENERAL - Review of Systems Review Of Systems: See Below Respiratory: Denies: Shortness of Breath Cardiovascular: Denies: Chest Pain (earlier, now resolved) GI/Abdominal: Reports: Abdominal Pain (epigastric pain), Nausea. Denies: Vomiting ED EXAM, GI/ABD - Physical Exam Exam: See Below Exam Limited By: No Limitations General Appearance: Alert, WD/WN, No Apparent Distress Nose: Normal Inspection Throat/Mouth: Normal Inspection, Normal Lips, Normal Teeth Respiratory/Chest: No Respiratory Distress, Lungs Clear, Normal Breath Sounds Cardiovascular: Normal Peripheral Pulses, Regular Rate, Rhythm, No Murmur GI/Abdominal Exam: Normal Bowel Sounds, Soft, Non-Tender Neurological: Alert, Oriented, Normal Cognition Psychiatric: Normal Affect, Normal Mood Skin Exam: Warm, Dry, Normal Color EKG INTERPRETATION EKG Date: 03/28/18 Time: 12:45 Rhythm: NSR Rate (Beats/Min): 67 [place]: Normal P-Wave: Present QRS: Normal ST-T: Normal QT: Normal EKG Interpretation Comments: NSR at 67 bpm. No acute changes. Reviewed by myself and Dr. Bruner. Course - Vital Signs Last Recorded V/S: Last Vital Signs Temp 97.5 F 03/28/18 12:05 Pulse 65 03/28/18 12:05 Resp 16 03/28/18 12:05 BP 150/104 H 03/28/18 12:05 Pulse Ox 100 03/28/18 12:05 - Orders/Labs/Meds Orders: Active Orders 24 hr Category Date Time Status Cardiac Monitoring [RC] . DIRECTED Care 03/28/18 12:31 Active EKG Documentation Completion [RC] ASDIRECTED Care 03/28/18 12:31 Active Peripheral IV Care [RC] . DIRECTED Care 03/28/18 12:31 Active Peripheral IV Insertion Adult [OM.PC] Routine Oth 03/28/18 12:31 Ordered EKG 12 Lead [EK] Stat Ther 03/28/18 12:31 Ordered Labs: Laboratory Tests 03/28/18 03/28/18 03/28/18 Range/Units 12:25 12:25 12:25 WBC 5.97 (4.23-9.07) K/mm3 RBC 4.87 (4.63-6.08) M/mm3 Hgb 15.4 (13.7-17.5) gm/L Hct 43.3 (40.1-51.0) % MCV 88.9 (79.0-92.2) fl MCH 31.6 (25.7-32.2) pg MCHC 35.6 H (32.2-35.5) g/dl RDW Std Deviation 39.6 (35.1-43.9) fL Plt Count 278 (163-337) K/mm3 MPV 9.3 L (9.4-12.3) fl Neut % (Auto) 47.1 (34.0-67.9) % Lymph % (Auto) 36.2 (21.8-53.1) % [place] % (Auto) 13.4 H (5.3-12.2) % Eos % (Auto) 2.8 (0.8-7.0) Baso % (Auto) 0.5 (0.1-1.2) % Neut # (Auto) 2.81 (1.78-5.38) K/mm3 Lymph # (Auto) 2.16 (1.32-3.57) K/mm3 [place] # (Auto) 0.80 (0.30-0.82) K/mm3 Eos # (Auto) 0.17 (0.04-0.54) K/mm3 Baso # (Auto) 0.03 (0.01-0.08) K/mm3 D-Dimer, Quantitative 0.39 (0.19-0.50) mg/L Sodium 140 (136-145) mEq/L Potassium 4.2 (3.5-5.1) mEq/L Chloride 103 (98-107) mEq/L Carbon Dioxide 26 (21-32) mEq/L Anion Gap 15.2 H (5-15) BUN 12 (7-18) mg/dL Creatinine 0.8 (0.7-1.3) mg/dL Est Cr Clr Drug Dosing 133.34 mL/min Estimated GFR (MDRD) > 60 (>60) mL/min BUN/Creatinine Ratio 15.0 (14-18) Glucose 97 (74-106) mg/dL Calcium 9.4 (8.5-10.1) mg/dL Total Bilirubin 0.5 (0.2-1.0) mg/dL AST 23 (15-37) U/L ALT 41 (16-63) U/L Alkaline Phosphatase 82 (46-116) U/L Troponin I < 0.017 (0.00-0.056) ng/mL C-Reactive Protein 0.4 (<1.0) mg/dL Total Protein 8.6 H (6.4-8.2) g/dl Albumin 4.5 (3.4-5.0) g/dl Globulin 4.1 gm/dL Albumin/Globulin Ratio 1.1 (1-2) Lipase 214 (73-393) U/L Meds: Medications Discontinued Medications Generic Name Dose Route Start Last Admin Trade Name Freq PRN Reason Stop Dose Admin Al Hydroxide/Mg Hydroxide 30 0 ml 03/28/18 12:31 03/28/18 12:57 ml/ Lidocaine HCl 15 ml PO 03/28/18 12:32 45 ml ONETIME ONE Administration Famotidine 20 mg 03/28/18 13:44 03/28/18 13:59 Pepcid PO 03/28/18 13:45 20 mg ONETIME ONE Administration Sodium Chloride 10 ml 03/28/18 12:31 03/28/18 12:58 Saline Flush FLUSH 10 ml ASDIRECTED PRN Administration Keep Vein Open Sucralfate 1 gm 03/28/18 13:44 03/28/18 13:59 Carafate PO 03/28/18 13:45 1 gm ONETIME ONE Administration - Radiology Interpretation Free Text/Narrative:: Chest: Two views of the chest were obtained. Comparison: Prior chest x-ray of 01/15/18. Heart size and mediastinum are normal. Lungs show no acute parenchymal change. Bony structures are unremarkable. Impression: 1. Nothing acute is seen. - Re-Assessments/Exams Free Text/Narrative Re-Assessment/Exam: 03/28/18 13:49 Checked on the patient. His discomfort is improving. Will try Carafate and Pepcid for additional relief. Reviewed the labs, EKG and imaging with the patient. 03/28/18 14:30 Discomfort improved. Will discharge with recommendations to start an H2 nicolle. Will send home with GI cocktail RX as needed. Recommend EGD as planned. Follow-up with PCP. Discharge instructions as documented. Departure - Departure Time of Disposition: 14:34 Disposition: Home, Self-Care 01 Condition: Good Clinical Impression: Epigastric pain, GERD (gastroesophageal reflux disease) - Discharge Information *PRESCRIPTION DRUG MONITORING PROGRAM REVIEWED*: No *COPY OF PRESCRIPTION DRUG MONITORING REPORT IN PATIENT AB: No Prescriptions: GI Cocktail 45 ml PO DAILY PRN #1 bottle PRN Reason: Heartburn Instructions: Gastroesophageal Reflux Disease, Adult, [id number] Referrals: Gina Decker MD [Primary Care Provider] - Forms: ED Department Discharge Additional Instructions: May take the GI cocktail (maalox and lidocaine) daily prn heartburn. Avoid foods that could trigger reflux such as spicy foods, alcohol, chocolate, etc. Recommend starting H2 nicolle daily in addition to the PPI that your artery taking. H2 nicolle will be something like Zantac or pepcid. Continue taking the omeprazole, PPI, daily as prescribed. Follow-up with surgery as planned have the EGD. Please return to the ER should your symptoms change or worsen. - My Orders Last 24 Hours: My Active Orders 03/28/18 12:31 Cardiac Monitoring [RC] . DIRECTED EKG Documentation Completion [RC] ASDIRECTED Peripheral IV Care [RC] . DIRECTED Peripheral IV Insertion Adult [OM.PC] Routine EKG 12 Lead [EK] Stat - Assessment/Plan Last 24 Hours: My Active Orders 03/28/18 12:31 Cardiac Monitoring [RC] . DIRECTED EKG Documentation Completion [RC] ASDIRECTED Peripheral IV Care [RC] . DIRECTED Peripheral IV Insertion Adult [OM.PC] Routine EKG 12 Lead [EK] Stat
--- NOTE | 2018-03-28 13:27 | CR ---
Chest: Two views of the chest were obtained. Comparison: Prior chest x-ray of 01/15/18. Heart size and mediastinum are normal. Lungs show no acute parenchymal change. Bony structures are unremarkable. Impression: 1. Nothing acute is seen. Diagnostic code #1
[2018-03-28] MEDS ORDERED: Sucralfate Suspension 1 GM/10 ML Cup PO ONE (13:44)
[2018-03-28] MEDS ORDERED: Famotidine 20 MG Tab PO ONE (13:44)
== END 2018-03-28 14:55 | disposition home or self-care (01) ==
LOC: JD.ED 11:56
DX: K21.9 Gastro-esophageal reflux disease without esophagitis (principal); I10 Essential (primary) hypertension; Z79.01 Long term (current) use of anticoagulants; Z79.82 Long term (current) use of aspirin; Z79.899 Other long term (current) drug therapy
CPT/HCPCS: 36415; 71046; 80053; 83690; 84484; 85025; 85379; 86140; 93005; 99285; A9270; J7050; 93010; 99284

== ENCOUNTER 2019-07-28 14:48 | Emergency (ER) | payer BC ==
[2019-07-28 15:30] VITALS: BP 153/93; PULSE 95
[2019-07-28] MEDS ORDERED: Sodium Chloride 0.9% 10 ML Syringe FLUSH PRN (15:56)
[2019-07-28] MEDS ORDERED: Metoclopramide 10 MG/2 ML SDV IVPUSH ONE (15:57)
[2019-07-28] MEDS ORDERED: Ketorolac 30 MG/ML SDV IVPUSH ONE (15:57)
[2019-07-28] MEDS ORDERED: diphenhydrAMINE 50 MG/ML SDV IVPUSH ONE (15:58)
--- NOTE | 2019-07-28 16:42 | EDM.PDOC ---
ED HPI GENERAL MEDICAL PROBLEM - General Chief Complaint: Headache Stated Complaint: HIGH BLOOD PRESSURE/HEADACHES AND SOB Time Seen by Provider: 07/28/19 15:37 Source of Information: Reports: Patient History Limitations: Reports: No Limitations - History of Present Illness INITIAL COMMENTS - FREE TEXT/NARRATIVE: The patient presents with a headache. He also has some other issues. His blood pressure was elevated in the 150s at the clinic that other days. The headache has been going no for a few days. He also has some nausea but no vomiting. He has no fever or chills. He has generalized weakness. He has no numbness or one sided weakness. He has some chest discomfort and upper abdomen discomfort. He has a decreased appetite. He has no health problems. Onset: Gradual Duration: Day(s): Location: Reports: Head, Chest Quality: Reports: Ache Severity: Moderate Improves with: Reports: None Worsens with: Reports: None Associated Symptoms: Reports: Chest Pain, Headaches. Denies: Cough, Fever/ Chills, Nausea/Vomiting, Shortness of Breath Headache Pain Score (Numeric/FACES): 3 - Related Data Allergies Allergy/AdvReac Type Severity Reaction Status Date / Time No Known Allergies Allergy Verified 07/28/19 15:26 Home Meds: Home Meds Aspirin [Halfprin] 81 mg PO DAILY 10/01/17 [History] Omeprazole Magnesium [Prilosec Otc] 40 mg PO DAILY 03/28/18 [History] ClonazePAM [KlonoPIN] 1 mg PO BID 07/16/18 [History] Escitalopram [Lexapro] 10 mg PO DAILY 07/16/18 [History] Past Medical History - Past Health History Medical/Surgical History: Denies Medical/Surgical History Cardiovascular History: Reports: Arrhythmia, Hypertension Other Cardiovascular History: was on medication but changed diet and hasn't needed medication in a few years. Respiratory History: Reports: PE Gastrointestinal History: Reports: GERD, Helicobacter Pylori, Other (See Below) Other Gastrointestinal History: esophageal stricture. Genitourinary History: Reports: Renal Calculus Psychiatric History: Reports: Anxiety, Depression Hematologic History: Reports: Anticoagulation Therapy Other Hematologic History: PE Other Dermatologic History: Keloids to chest and shoulder - Past Surgical History HEENT Surgical History: Reports: Oral Surgery GI Surgical History: Reports: EGD, Hernia, Inguinal Social & Family History - Family History Family Medical History: Noncontributory - Tobacco Use Smoking Status *Q: Never Smoker - Caffeine Use Caffeine Use: Reports: Coffee, Soda Other Caffeine Use: daily - Recreational Drug Use Recreational Drug Use: No - Living Situation & Occupation Living situation: Reports: Single, with Significant Other (Fiance), with Family (3 kids) 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 Denies: Diarrhea, Vomiting : Reports: No Symptoms Musculoskeletal: Reports: No Symptoms - Physical Exam Exam: See Below Exam Limited By: No Limitations General Appearance: Alert, No Apparent Distress Ears: Normal External Exam Nose: Normal Inspection Head Exam: Atraumatic, Normocephalic Neck: Normal Inspection, Supple, Non-Tender Respiratory/Chest: No Respiratory Distress, Lungs Clear, Normal Breath Sounds Cardiovascular: Regular Rate, Rhythm, No Edema, No Murmur GI/Abdominal: Soft, Non-Tender, No Organomegaly, No Mass Neuro Exam (Abbreviated): Alert, Oriented, No Motor/Sensory Deficits EKG INTERPRETATION EKG Date: 07/28/19 Time: 16:13 Rhythm: NSR Rate (Beats/Min): 87 [place]: Normal P-Wave: Present QRS: Normal ST-T: Normal QT: Normal Course - Vital Signs Last Recorded V/S: Last Vital Signs Temp 97.2 F 07/28/19 15:27 Pulse 95 07/28/19 15:27 Resp 16 07/28/19 15:27 BP 153/93 H 07/28/19 15:27 Pulse Ox 94 L 07/28/19 15:27 - Orders/Labs/Meds Orders: Active Orders 24 hr Category Date Time Status Cardiac Monitoring [RC] . DIRECTED Care 07/28/19 15:56 Active EKG Documentation Completion [RC] STAT Care 07/28/19 15:56 Active Peripheral IV Care [RC] . DIRECTED Care 07/28/19 15:56 Active Chest 1V Frontal [CR] Stat Exams 07/28/19 15:57 Taken Sodium Chloride 0.9% [Saline Flush] Med 07/28/19 15:56 Active 10 ml FLUSH ASDIRECTED PRN Peripheral IV Insertion Adult [OM.PC] Stat Oth 07/28/19 15:56 Ordered Medication Orders Sodium Chloride (Saline Flush) 10 ml FLUSH ASDIRECTED PRN PRN Reason: Keep Vein Open Last Admin: 07/28/19 16:53 Dose: 10 ml Labs: Laboratory Tests 07/28/19 07/28/19 07/28/19 Range/Units 16:10 16:10 16:10 WBC 7.74 (4.23-9.07) K/mm3 RBC 5.13 (4.63-6.08) M/mm3 Hgb 15.8 (13.7-17.5) gm/dl Hct 45.4 (40.1-51.0) % MCV 88.5 (79.0-92.2) fl MCH 30.8 (25.7-32.2) pg MCHC 34.8 (32.2-35.5) g/dl RDW Std Deviation 40.0 (35.1-43.9) fL Plt Count 317 (163-337) K/mm3 MPV 9.0 L (9.4-12.3) fl Neut % (Auto) 51.1 (34.0-67.9) % Lymph % (Auto) 34.9 (21.8-53.1) % [place] % (Auto) 10.5 (5.3-12.2) % Eos % (Auto) 2.8 (0.8-7.0) Baso % (Auto) 0.4 (0.1-1.2) % Neut # (Auto) 3.96 (1.78-5.38) K/mm3 Lymph # (Auto) 2.70 (1.32-3.57) K/mm3 Starke # (Auto) 0.81 (0.30-0.82) K/mm3 Eos # (Auto) 0.22 (0.04-0.54) K/mm3 Baso # (Auto) 0.03 (0.01-0.08) K/mm3 D-Dimer, Quantitative 0.31 (0.19-0.50) mg/L Sodium 137 (136-145) mEq/L Potassium 4.0 (3.5-5.1) mEq/L Chloride 103 (98-107) mEq/L Carbon Dioxide 25 (21-32) mEq/L Anion Gap 13.0 (5-15) BUN 20 H (7-18) mg/dL Creatinine 0.8 (0.7-1.3) mg/dL Est Cr Clr Drug Dosing 130.73 mL/min Estimated GFR (MDRD) > 60 (>60) mL/min BUN/Creatinine Ratio 25.0 H (14-18) Glucose 87 (74-106) mg/dL Calcium 9.7 (8.5-10.1) mg/dL Total Bilirubin 0.3 (0.2-1.0) mg/dL AST 25 (15-37) U/L ALT 51 (16-63) U/L Alkaline Phosphatase 87 (46-116) U/L Troponin I < 0.017 (0.00-0.056) ng/mL Total Protein 8.0 (6.4-8.2) g/dl Albumin 4.2 (3.4-5.0) g/dl Globulin 3.8 gm/dL Albumin/Globulin Ratio 1.1 (1-2) TSH 3rd Generation (0.358-3.74) uIU/mL 07/28/19 Range/Units 16:10 WBC (4.23-9.07) K/mm3 RBC (4.63-6.08) M/mm3 Hgb (13.7-17.5) gm/dl Hct (40.1-51.0) % MCV (79.0-92.2) fl MCH (25.7-32.2) pg MCHC (32.2-35.5) g/dl RDW Std Deviation (35.1-43.9) fL Plt Count (163-337) K/mm3 MPV (9.4-12.3) fl Neut % (Auto) (34.0-67.9) % Lymph % (Auto) (21.8-53.1) % Starke % (Auto) (5.3-12.2) % Eos % (Auto) (0.8-7.0) Baso % (Auto) (0.1-1.2) % Neut # (Auto) (1.78-5.38) K/mm3 Lymph # (Auto) (1.32-3.57) K/mm3 Starke # (Auto) (0.30-0.82) K/mm3 Eos # (Auto) (0.04-0.54) K/mm3 Baso # (Auto) (0.01-0.08) K/mm3 D-Dimer, Quantitative (0.19-0.50) mg/L Sodium (136-145) mEq/L Potassium (3.5-5.1) mEq/L Chloride (98-107) mEq/L Carbon Dioxide (21-32) mEq/L Anion Gap (5-15) BUN (7-18) mg/dL Creatinine (0.7-1.3) mg/dL Est Cr Clr Drug Dosing mL/min Estimated GFR (MDRD) (>60) mL/min BUN/Creatinine Ratio (14-18) Glucose (74-106) mg/dL Calcium (8.5-10.1) mg/dL Total Bilirubin (0.2-1.0) mg/dL AST (15-37) U/L ALT (16-63) U/L Alkaline Phosphatase (46-116) U/L Troponin I (0.00-0.056) ng/mL Total Protein (6.4-8.2) g/dl Albumin (3.4-5.0) g/dl Globulin gm/dL Albumin/Globulin Ratio (1-2) TSH 3rd Generation 2.287 (0.358-3.74) uIU/mL Meds: Medications Generic Name Dose Route Start Last Admin Trade Name Freq PRN Reason Stop Dose Admin Sodium Chloride 10 ml 07/28/19 15:56 07/28/19 16:53 Saline Flush FLUSH 10 ml ASDIRECTED PRN Administration Keep Vein Open Discontinued Medications Generic Name Dose Route Start Last Admin Trade Name Freq PRN Reason Stop Dose Admin Diphenhydramine HCl 50 mg 07/28/19 15:58 07/28/19 16:53 Benadryl IVPUSH 07/28/19 15:59 50 mg ONETIME ONE Administration Ketorolac Tromethamine 30 mg 07/28/19 15:57 07/28/19 16:52 Toradol IVPUSH 07/28/19 15:58 30 mg ONETIME ONE Administration Metoclopramide HCl 10 mg 07/28/19 15:57 07/28/19 16:53 Reglan IVPUSH 07/28/19 15:58 10 mg ONETIME ONE Administration - Re-Assessments/Exams Free Text/Narrative Re-Assessment/Exam: 07/28/19 16:41 I ordered an IV saline lock, toradol 30mg IV, benadryl 50mg IV, reglan 10mg IV, labs, EKG, and a CT of his head. 07/28/19 17:[address] looks good. His CXR shows nothing acute. His CBC and CMP look good. His D-dimer is negative along with his troponin and TSH. Departure - Departure Time of Disposition: 17:45 Disposition: Home, Self-Care 01 Condition: Good Clinical Impression: Atypical chest pain Headache Qualifiers: Headache type: unspecified Headache chronicity pattern: acute headache Intractability: not intractable Qualified Code(s): R51 - Headache - Discharge Information *PRESCRIPTION DRUG MONITORING PROGRAM REVIEWED*: Not Applicable *COPY OF PRESCRIPTION DRUG MONITORING REPORT IN PATIENT AB: Not Applicable Referrals: Gina Decker MD [Primary Care Provider] - 1 Week Forms: ED Department Discharge Additional Instructions: Go home and rest. Take tylenol or motrin for any fever or pain. Please return if you are worse. Sepsis Event Note - Evaluation Sepsis Screening Result: No Definite Risk - Focused Exam Vital Signs: Vital Signs Temp Pulse Resp BP Pulse Ox 07/28/19 15:27 97.2 F 95 16 153/93 H 94 L Date Exam was Performed: 07/28/19 Time Exam was Performed: 17:40 - My Orders Last 24 Hours: My Active Orders 07/28/19 15:56 Cardiac Monitoring [RC] . DIRECTED EKG Documentation Completion [RC] STAT Peripheral IV Care [RC] . DIRECTED Sodium Chloride 0.9% [Saline Flush] 10 ml FLUSH ASDIRECTED PRN Peripheral IV Insertion Adult [OM.PC] Stat 07/28/19 15:57 Chest 1V Frontal [CR] Stat - Assessment/Plan Last 24 Hours: My Active Orders 07/28/19 15:56 Cardiac Monitoring [RC] . DIRECTED EKG Documentation Completion [RC] STAT Peripheral IV Care [RC] . DIRECTED Sodium Chloride 0.9% [Saline Flush] 10 ml FLUSH ASDIRECTED PRN Peripheral IV Insertion Adult [OM.PC] Stat 07/28/19 15:57 Chest 1V Frontal [CR] Stat
--- NOTE | 2019-07-28 17:32 | CT ---
Head CT Technique: Multiple axial sections through the brain were obtained. Intravenous contrast was not utilized. Comparison: No prior intracranial imaging. Findings: Ventricles along with basal cisterns and sulci over the convexities appear within normal limits for the patient's age. No abnormal parenchymal densities are seen. No evidence of intracranial hemorrhage. No midline shift or mass effect is seen. Bone window settings were reviewed. Visualized mastoid sinus and paranasal sinuses are clear. No acute calvarial abnormality is appreciated. Impression: 1. Nothing acute is appreciated on noncontrast head CT exam. Diagnostic code #1 This report was dictated in [place] Standard Time
--- NOTE | 2019-07-30 10:47 | CR ---
Chest: Portable view of the chest was obtained. Comparison: Prior chest x-ray of 03/28/18. Heart size and mediastinum are normal. Lungs are clear. Bony structures are grossly intact. Impression: 1. Nothing acute is seen on portable chest x-ray. Diagnostic code #1 This report was dictated in [place] Standard Time
== END 2019-07-28 17:53 | disposition home or self-care (01) ==
LOC: JD.ED 14:48
DX: R07.89 Other chest pain (principal); R51 Headache; I10 Essential (primary) hypertension; K21.9 Gastro-esophageal reflux disease without esophagitis; F32.9 Major depressive disorder, single episode, unspecified; Z79.899 Other long term (current) drug therapy
CPT/HCPCS: 36415; 70450; 71045; 80053; 84443; 84484; 85025; 85379; 93005; 96374; 96375; 99284; J1200; J1885; J2765; 93010